=== PATIENT | male | born 1950 | race Caucasian/White ===

== ENCOUNTER 2016-08-13 11:09 | Emergency (ER) | payer SELFPAY ==
[2016-08-13] MEDS ORDERED: IPRATROPIUM BROMIDE 0.02% NEB 0.5 MG/2.5 ML AMPUL NEB ONE (11:28)
--- NOTE | 2016-08-13 11:35 | ER Document Report ---
ED Respiratory Problem - General Mode of Arrival: Medic Information source: Patient TRAVEL OUTSIDE OF THE [place] IN LAST 30 DAYS: No - HPI Patient complains to provider of: Cough, Short of breath Onset: Other - see narrative Duration: Worse/persistent Quality of pain: No pain Context: Hx COPD <PRIYANKAZENA - Last Filed: 08/13/16 11:41> <JACQUELIN PRETTY - Last Filed: 08/13/16 13:29> - General Chief Complaint: Chest Pain Stated Complaint: SHORTNESS OF BREATH Notes: Patient is a 65-year-old male that presents to the emergency department today with complaints of shortness of breath with a cough. Patient states that he has had the cough for 5-6 days and the shortness of breath for the last 2-3 weeks. Patient states he has noticed that his sputum is christian in color and he has had blood specks in the sputum periodically. Patient has an extensive documented past medical history. (ZENA MATHEW) - Related Data Allergies/Adverse Reactions: celecoxib [From Celebrex] Allergy (Unknown, Verified 05/07/15 14:18) codeine [Codeine] Allergy (Unknown, Verified 05/07/15 14:18) fluticasone [Fluticasone] Allergy (Unknown, Verified 05/07/15 14:18) gabapentin [Gabapentin] Allergy (Unknown, Verified 05/07/15 14:18) oxycodone HCl [From Percocet] Allergy (Unknown, Verified 05/07/15 14:18) pentazocine lactate [From Talwin] Allergy (Unknown, Verified 05/07/15 14:18) simvastatin [From Zocor] Allergy (Unknown, Verified 05/07/15 14:18) adhesive tape [Adhesive Tape] Allergy (Verified 05/07/15 14:18) latex [Latex] Allergy (Verified 05/07/15 14:18) oxycodone terephthalate [From Percodan] Allergy (Verified 05/07/15 14:18) prednisone [Prednisone] Allergy (Verified 05/07/15 14:18) topiramate [From Topamax] Allergy (Verified 05/07/15 14:18) albuterol [Albuterol] Adverse Reaction (Unknown, Verified 05/07/15 14:18) dry throat verisol Allergy (Uncoded 12/14/15 14:18) Past Medical History - General Information source: Patient, [facility] Records - Social History Smoking Status: Former Smoker Cigarette use (# per day): No Frequency of alcohol use: None Drug Abuse: None Lives with: Family Family History: Reviewed & Not Pertinent - Past Medical History Cardiac Medical History: Reports: Hx Atrial Fibrillation, Hx Congestive Heart Failure, Hx Coronary Artery Disease, Hx Heart Attack, Hx Hypercholesterolemia, Hx Hypertension, Hx Peripheral Vascular Disease, Hx Pulmonary Embolism Pulmonary Medical History: Reports: Hx Asthma, Hx COPD, Hx Pneumonia, Hx Sleep Apnea Neurological Medical History: Reports: Hx Cerebrovascular Accident - x2 Endocrine Medical History: Reports: Hx Diabetes Mellitus Type 2 - insulin- dependent Renal/ Medical History: Reports: Hx Kidney Stones GI Medical History: Reports: Hx Gastroesophageal Reflux Disease, Hx Hiatal Hernia Musculoskeltal Medical History: Reports Hx Arthritis - neck and head, Reports Hx Fibromyalgia Psychiatric Medical History: Reports: Hx Depression, Hx Post Traumatic Stress Disorder Traumatic Medical History: Reports: Hx Fractures Infectious Medical History: Reports: Hx MRSA Past Surgical History: Reports: Hx Cardiac Catheterization, Hx Cardiac Surgery - pacemaker, stents, aortic bypass, femfem bypass., Hx Orthopedic Surgery - Bilat knees,back, right ankle, right elbow, Hx Pacemaker - Immunizations Immunizations up to date: Yes Hx Diphtheria, Pertussis, Tetanus Vaccination: Yes Hx Pneumococcal Vaccination: 01/24/08 <ZENA MATHEW - Last Filed: 08/13/16 11:41> Review of Systems - Review of Systems Constitutional: No symptoms reported EENT: No symptoms reported Cardiovascular: No symptoms reported Respiratory: See HPI, Cough, Short of breath, Wheezing Gastrointestinal: No symptoms reported Genitourinary: No symptoms reported Male Genitourinary: No symptoms reported Musculoskeletal: No symptoms reported Skin: No symptoms reported Hematologic/Lymphatic: No symptoms reported Neurological/Psychological: No symptoms reported -: Yes All other systems reviewed and negative <ZENA MATHEW - Last Filed: 08/13/16 11:41> Physical Exam - General General appearance: Appears well In distress: None - HEENT Head: Normocephalic, Atraumatic Eyes: Normal Conjunctiva: Normal - Respiratory Respiratory status: No respiratory distress Chest status: Nontender Breath sounds: Wheezing - inspiratory and expiratory wheezing bilaterally - Cardiovascular Rhythm: Regular Heart sounds: Normal auscultation Murmur: No - Abdominal Inspection: Normal Distension: No distension Bowel sounds: Normal Tenderness: Nontender - Extremities General upper extremity: Normal inspection, Normal ROM. No: Edema General lower extremity: Edema - pitting edema bilaterally, Normal ROM - Neurological Neuro grossly intact: Yes Cognition: Normal Speech: Normal - Psychological Associated symptoms: Normal affect, Normal mood - Skin Skin Temperature: Warm Skin Moisture: Dry Skin Color: Normal <ZENA MATHEW - Last Filed: 08/13/16 11:41> Course - Laboratory Result Diagrams: 08/13/16 12:25 08/13/16 12:25 - Diagnostic Test Radiology reviewed: Image reviewed, Reports reviewed - Chest x-ray does not show any acute change. - EKG Interpretation by Fl EKG shows normal: Sinus rhythm, [place], Intervals, QRS Complexes, ST-T Waves Rate: Normal - 61 Rhythm: NSR [place]/QRS: IVCD When compared to previous EKG there are: No significant change <JACQUELIN PRETTY - Last Filed: 08/13/16 13:29> - Vital Signs Vital signs: Temp Pulse Resp BP Pulse Ox 97.9 F 61 13 122/71 91 L 08/13/16 11:24 08/13/16 11:24 08/13/16 11:46 08/13/16 12:01 08/13/16 12:00 - Laboratory Laboratory results interpreted by wv: 08/13/16 08/13/16 08/13/16 12:25 12:25 12:25 RBC 3.85 L Hgb 12.1 L Hct 36.0 L Plt Count 119 L PT 26.0 H Glucose 205 H Creatine Kinase 305 H Discharge <ZENA MATHEW - Last Filed: 08/13/16 11:41> <JACQUELIN PRETTY - Last Filed: 08/13/16 13:29> - Discharge Clinical Impression: Viral upper respiratory tract infection with cough, Hemoptysis Condition: Stable Disposition: HOME, SELF-CARE Additional Instructions: Bronchitis with Bronchospasm (Wheezing): You have bronchitis with bronchospasm (wheezing). Sometimes people develop wheezing with a chest cold. This occurs either because of an underlying tendency toward asthma or because the virus itself irritates the bronchial tubes. This irritation causes cough, shortness of breath, and wheezing. Emergency treatment of bronchospasm may include adrenaline shots or bronchodilator aerosol. You may feel lightheaded and have a rapid pulse for an hour or two. Rest and get plenty of fluids. At home, we'll treat you with a bronchodilator inhaler. Corticosteroids may be required for some patients. Until you recover, avoid chemical fumes, dusts, pollens, and exercising in very cold or dry air. If you smoke, stop now! Most cases of bronchitis get better without antibiotics. We prescribe antibiotics when we believe bacteria are damaging your airways, or if there's high risk the bronchitis will worsen into pneumonia. Increase your fluid intake. A cool mist humidifier may make your lungs more comfortable. An expectorant (cough medicine that loosens phlegm) can help. Repeated episodes of bronchitis and bronchospasm may result in lung damage -- for example, chronic bronchitis, recurrent pneumonias, or emphysema. If you develop a fever, increased wheezing, chest pain, or severe shortness of breath, you should contact the doctor immediately. USE THE INHALER PRESCRIBED FOR WHEEZING. FOLLOW UP WITH YOUR DOCTOR IF NOT IMPROVING. RETURN TO THE EMERGENCY ROOM IF ANY NEW OR WORSENING SYMPTOMS. Prescriptions: Ipratropium [place] [Atrovent Hfa] 12.9 gm IH Q4 #1 [email or web address] Scribe Attestation: 08/13/16 13:29 I personally performed the services described in the documentation, reviewed and edited the documentation which was dictated to the scribe in my presence, and it accurately records my words and actions. (JACQUELIN PRETTY) Scribe Documentation - Scribe Written by Lilly:: Lilly Proctor, 08/13/2016 1137 acting as scribe for :: Dhiraj <ZENA MATHEW - Last Filed: 08/13/16 11:41>
[2016-08-13 12:42] LABS: ABSOLUTE EOSINOPHILS # (AUTO) 0.1 10^3/uL (0.0-0.6); ABSOLUTE LYMPHOCYTES (AUTO) 1.3 10^3/uL (0.5-4.7); ABSOLUTE MONOCYTES (AUTO) 0.7 10^3/uL (0.1-1.4); ABSOLUTE NEUT (AUTO) 6.3 10^3/uL (1.7-8.2); BASOPHILS % (AUTO) 0.3 % (0-2); EOSINOPHILS % (AUTO) 1.2 % (0-6); HEMOGLOBIN 12.1 g/dL (13.5-17.0); HGB HCT DIFFERENCE 0.3; MEAN CORPUSCULAR HEMOGLOBIN 31.6 pg (27.0-33.4); MEAN CORPUSCULAR HGB CONC 33.7 g/dL (32.0-36.0); MEAN CORPUSCULAR VOLUME 94 fl (80-97); MONOCYTES % (AUTO) 8.4 % (3-13); RED BLOOD COUNT 3.85 10^6/uL (4.35-5.55); RED CELL DISTRIBUTION WIDTH 13.5 % (11.5-14.0); SEGMENTED NEUTROPHILS % (AUTO) 74.1 % (42-78); WHITE BLOOD COUNT 8.4 10^3/uL (4.0-10.5)
[2016-08-13] MEDS ORDERED: MORPHINE SULFATE 10 MG/ML INJ IV ONE (12:44)
[2016-08-13 13:02] LABS: ALANINE AMINOTRANSFERASE 36 U/L (21-72); ALBUMIN 3.9 g/dL (3.5-5.0); ALKALINE PHOSPHATASE 74 U/L (38-126); ANION GAP 13 (5-19); ASPARTATE AMINO TRANSFERASE 23 U/L (17-59); BILIRUBIN,DIRECT 0.2 mg/dL (0.0-0.4); BILIRUBIN,TOTAL 0.6 mg/dL (0.2-1.3); BLOOD UREA NITROGEN 10 mg/dL (7-20); CALCIUM 9.2 mg/dL (8.4-10.2); CARBON DIOXIDE 29 mmol/L (22-30); CHLORIDE 99 mmol/L (98-107); CREATINE KINASE 305 U/L (55-170); CREATININE RESULT 0.69 mg/dL (0.52-1.25); GLUCOSE 205 mg/dL (75-110); MAGNESIUM 1.6 mg/dL (1.6-2.3); SODIUM 140.9 mmol/L (137-145); TOTAL PROTEIN 6.6 g/dL (6.3-8.2)
[2016-08-13 13:14] LABS: CREATINE KINASE MB 1.57 ng/mL (<4.55)
[2016-08-13 13:18] LABS: TROPONIN I < 0.012 ng/mL
--- NOTE | 2016-08-13 13:50 | EKG REPORT ---
SEVERITY:- ABNORMAL ECG - SINUS RHYTHM NONSPECIFIC INTRAVENTRICULAR CONDUCTION DELAY NONSPECIFIC ST-T CHANGES INFEROLATERAL LEADS. : Confirmed by: Cornelio Duenas MD 13-Aug-2016 13:50:04
[2016-08-13 14:28] VITALS: BP 120/60
== END 2016-08-13 14:28 | disposition home or self-care (01) ==
LOC: ER 11:09
DX: J06.9 Acute upper respiratory infection, unspecified (principal); R07.9 Chest pain, unspecified; B97.89 Other viral agents as the cause of diseases classified elsewhere; R04.2 Hemoptysis; R06.02 Shortness of breath; I48.91 Unspecified atrial fibrillation; I50.9 Heart failure, unspecified; I11.0 Hypertensive heart disease with heart failure; I25.10 Atherosclerotic heart disease of native coronary artery without angina pectoris; J44.9 Chronic obstructive pulmonary disease, unspecified; E78.00 Pure hypercholesterolemia, unspecified; E11.9 Type 2 diabetes mellitus without complications; Z88.6 Allergy status to analgesic agent; Z87.891 Personal history of nicotine dependence; Z86.711 Personal history of pulmonary embolism; Z86.73 Personal history of transient ischemic attack (TIA), and cerebral infarction without residual deficits; Z79.4 Long term (current) use of insulin; Z87.442 Personal history of urinary calculi; Z86.14 Personal history of Methicillin resistant Staphylococcus aureus infection; Z95.0 Presence of cardiac pacemaker; Z95.1 Presence of aortocoronary bypass graft; I25.2 Old myocardial infarction
CPT/HCPCS: 93005; 36591; 94640; 99285; 96374; 36415; 87040; 82553; 82550; 83735; 85025; 85610; 80053; 84484; 83880; 71010; 93010; J2270; J3490

== ENCOUNTER 2017-11-07 00:08 | Emergency (ER) | payer OTHER, MEDICARE ==
[2017-11-07] MEDS ORDERED: ASPIRIN 325 MG TABLET PO ONE (00:24)
[2017-11-07] MEDS ORDERED: LEVALBUTEROL HCL NEB 1.25 MG/3 ML AMPUL NEB ONE (00:27)
[2017-11-07] MEDS ORDERED: FENTANYL CITRATE INJ/PF 100 MCG/2 ML AMPUL IV ONE (00:29)
--- NOTE | 2017-11-07 00:30 | ER Document Report ---
ED General - General Stated Complaint: CHEST PAIN Time Seen by Provider: 11/07/17 00:17 Notes: Patient is a 66-year-old male with history of COPD and coronary disease who still smokes who presents with complaint of chest pain. Patient says he has chest pain frequently. He was actually just discharged from the hospital last week. He says that he has 8 stents now have blockages and is been told by his bakelite molder that he cannot have any further stents. He says that last week at the hospital he had a stress test which showed no new congestive lesions. Denies any vomiting. No diarrhea. He still having chest pain again tonight. Chest pain does not respond at all to nitro. He therefore came to the ER. He does have a lot of wheezing. He does still smoke and does have history of COPD. His allergy list includes many medications including Celebrex. When I asked him if he can take aspirin he says "I do not think so". I asked him why and he said that is because he cannot chew them. He then said he can take the kind that they swallow. I therefore ordered aspirin that he can swallow. Went to order him breathing treatment and also says he is allergic to albuterol. Patient says he is not sure what his allergy to albuterol was not any says it might be because it makes his heart race fast. I therefore have ordered Xopenex. Patient's chest pain is substernal and nonradiating. No recent fevers or infections. No other complaints at this time. He does have a pacemaker and a port. TRAVEL OUTSIDE OF THE [place] IN LAST 30 DAYS: No - Related Data Allergies/Adverse Reactions: celecoxib [From Celebrex] Allergy (Unknown, Verified 05/07/15 14:18) codeine [Codeine] Allergy (Unknown, Verified 05/07/15 14:18) fluticasone [Fluticasone] Allergy (Unknown, Verified 05/07/15 14:18) gabapentin [Gabapentin] Allergy (Unknown, Verified 05/07/15 14:18) oxycodone HCl [From Percocet] Allergy (Unknown, Verified 05/07/15 14:18) pentazocine lactate [From Talwin] Allergy (Unknown, Verified 05/07/15 14:18) simvastatin [From Zocor] Allergy (Unknown, Verified 05/07/15 14:18) adhesive tape [Adhesive Tape] Allergy (Verified 05/07/15 14:18) latex [Latex] Allergy (Verified 05/07/15 14:18) oxycodone terephthalate [From Percodan] Allergy (Verified 05/07/15 14:18) prednisone [Prednisone] Allergy (Verified 05/07/15 14:18) topiramate [From Topamax] Allergy (Verified 05/07/15 14:18) albuterol [Albuterol] Adverse Reaction (Unknown, Verified 05/07/15 14:18) dry throat verisol Allergy (Uncoded 05/07/15 14:18) Past Medical History - Social History Smoking Status: Current Every Day Smoker Frequency of alcohol use: None Drug Abuse: None Family History: Reviewed & Not Pertinent - Past Medical History Cardiac Medical History: Reports: Hx Atrial Fibrillation, Hx Congestive Heart Failure, Hx Coronary Artery Disease, Hx Heart Attack, Hx Hypercholesterolemia, Hx Hypertension, Hx Peripheral Vascular Disease, Hx Pulmonary Embolism Pulmonary Medical History: Reports: Hx Asthma, Hx COPD, Hx Pneumonia, Hx Sleep Apnea Neurological Medical History: Reports: Hx Cerebrovascular Accident - x2 Endocrine Medical History: Reports: Hx Diabetes Mellitus Type 2 - insulin- dependent Renal/ Medical History: Reports: Hx Kidney Stones GI Medical History: Reports: Hx Gastroesophageal Reflux Disease, Hx Hiatal Hernia Musculoskeltal Medical History: Reports Hx Arthritis - neck and head, Reports Hx Fibromyalgia Psychiatric Medical History: Reports: Hx Depression, Hx Post Traumatic Stress Disorder Traumatic Medical History: Reports: Hx Fractures Infectious Medical History: Reports: Hx MRSA Past Surgical History: Reports: Hx Cardiac Catheterization, Hx Cardiac Surgery - pacemaker, stents, aortic bypass, femfem bypass., Hx Orthopedic Surgery - Bilat knees,back, right ankle, right elbow, Hx Pacemaker, Hx Vascular Surgery - stents x8 - Immunizations Immunizations up to date: Yes Hx Diphtheria, Pertussis, Tetanus Vaccination: Yes Hx Pneumococcal Vaccination: 01/24/08 Review of Systems - Review of Systems Notes: My Normal Review Basic REVIEW OF SYSTEMS: CONSTITUTIONAL : Denies fever, chills, or sweats. Denies recent illness. CARDIOVASCULAR: Chest pain RESPIRATORY: Wheezing GASTROINTESTINAL: Denies abdominal pain. Denies nausea, vomiting, or diarrhea. Denies constipation. Last BM: GENITOURINARY: Denies difficulty urinating, painful urination, burning, frequency, or blood in urine. MUSCULOSKELETAL: Denies neck or back pain or joint pain or swelling. SKIN: Denies rash or skin lesions. NEUROLOGICAL: Denies altered mental status or loss of consciousness. ALL OTHER SYSTEMS REVIEWED AND NEGATIVE. Physical Exam - Vital signs Vitals: Resp Pulse Ox 16 98 11/07/17 00:26 11/07/17 00:26 - Notes Notes: General Appearance: Well nourished, alert, cooperative, no acute distress, no obvious discomfort. Vitals: reviewed, See vital signs table. Head: no swelling or tenderness to the head Eyes: PERRL, EOMI, Conjuctiva clear Mouth: No decreasd moisture Lungs: diffuse wheezing, No rales, diffuse rhonci, No accessory muscle use, good air exchange bilaterally. Heart: Normal rate, Regular rythm, No murmur, no rub Abdomen: Normal BS, soft, No rigidity, No abdominal tenderness, No guarding, no rebound, no abdominal masses, no organomegaly Extremities: strength 5/5 in all extremities, good pulses in all extremities, no swelling or tenderness in the extremities, no edema. Skin: warm, dry, appropriate color, no rash Neuro: speech clear, oriented x 3, normal affect, responds appropriately to questions. Course - Re-evaluation Re-evalutation: 11/07/17 02:19 Patient's chest pain completely resolved the fentanyl. On final read for office chest pain came back. EKG is negative his initial troponin is negative. Will order a delta troponin. I will give him a dose of [place]. His pain is not affected all but nitro and it is reproducible palpation. I will repeat another EKG as well. 11/07/17 06:48 Patient's lung auscultation is improved after Xopenex treatment. I suspect this is a rescue inhaler has at home as he says it is similar to albuterol but not albuterol. He does not have a spacer for. I will give him a spacer so that hopefully the inhalers will be more effective for him. His pain is reproducible palpation of his chest. I do not suspect that his pain is related to his coronary disease being that she is a reproducible palpation, is worse when he had his wheezing, he does not respond to nitro, his EKG and troponins are negative, and because he had a recent cardiac stress test which was negative. Strong informed patient call his bakelite molder on Thursday for close follow-up and reevaluation. I encourage him return to ER immediately if he has worsening chest pain, difficulty breathing, or feels unwell. Patient agrees with plan will be discharged home. Strongly encourage patient to quit smoking. Dictation of this chart was performed using voice recognition software; therefore, there may be some unintended grammatical errors. - Vital Signs Vital signs: Temp Pulse Resp BP Pulse Ox 17 134/71 H 98 11/07/17 04:33 11/07/17 04:33 11/07/17 04:33 - Laboratory Result Diagrams: 11/07/17 01:10 11/07/17 01:10 Laboratory results interpreted by me: 11/07/17 11/07/17 11/07/17 01:10 01:10 01:17 RBC 4.11 L Hgb 12.7 L Hct 37.5 L RDW 14.5 H Plt Count 136 L POC Glucose 111 H ALT 16 L - EKG Interpretation by Me Additional EKG results interpreted by me: 11/07/17 00:34 EKG is reviewed and interpreted by me. EKG shows paced rhythm with rate of [address] segment elevation or depression. No new T-wave inversions. RI interval slightly prolonged. QRS duration QTc intervals are within normal range. No acute changes comparison to old EKG from August 13, 2016. 11/07/17 03:11 EKG #2 is reviewed and interpreted by me. EKG continues to show a paced rhythm with rate of [address] segment elevation or depression. T-wave inversion in lead III again is unchanged comparison to previous EKG. Discharge - Discharge Clinical Impression: Chest pain Qualifiers: Chest pain type: unspecified Qualified Code(s): R07.9 - Chest pain, unspecified COPD (chronic obstructive pulmonary disease) Qualifiers: COPD type: unspecified COPD Qualified Code(s): J44.9 - Chronic obstructive pulmonary disease, unspecified Condition: Good Disposition: HOME, SELF-CARE Additional Instructions: Please call your bakelite molder Thursday morning for a follow up appointment. please use your inhaler with the spacer I gave you to help with your wheezing. please return to the ER if you have worsening chest pain, difficulty breathing, or feel that you are worsening in any way. Referrals: INGRIS TENA MD [Primary Care Provider] - 11/09/17
[2017-11-07] MEDS ORDERED: ONDANSETRON 4 MG TAB.RAPDIS PO ONE (00:38)
--- NOTE | 2017-11-07 01:13 | RADIOLOGY REPORT (SQ) ---
EXAM DESCRIPTION: CLINICAL HISTORY: 66 years Male chest pain COMPARISON: 08/11/2016 FINDINGS: The cardiomediastinal silhouette appears unremarkable. No consolidating infiltrates or pleural effusions. No pneumothorax. [id number] catheter with the tip in the SVC. Pacemaker in place. IMPRESSION: No acute abnormality is identified.
[2017-11-07 01:32] LABS: ABSOLUTE EOSINOPHILS # (AUTO) 0.1 10^3/uL (0.0-0.6); ABSOLUTE LYMPHOCYTES (AUTO) 2.6 10^3/uL (0.5-4.7); ABSOLUTE MONOCYTES (AUTO) 0.8 10^3/uL (0.1-1.4); ABSOLUTE NEUT (AUTO) 5.9 10^3/uL (1.7-8.2); BASOPHILS % (AUTO) 0.3 % (0-2); EOSINOPHILS % (AUTO) 0.6 % (0-6); HEMATOCRIT 37.5 % (37.9-51.0); HEMOGLOBIN 12.7 g/dL (13.5-17.0); LYMPHOCYTES % (AUTO) 27.5 % (13-45); MEAN CORPUSCULAR HGB CONC 33.9 g/dL (32.0-36.0); MEAN CORPUSCULAR VOLUME 91 fl (80-97); MONOCYTES % (AUTO) 8.6 % (3-13); PLATELET COUNT 136 10^3/uL (150-450); RED BLOOD COUNT 4.11 10^6/uL (4.35-5.55); RED CELL DISTRIBUTION WIDTH 14.5 % (11.5-14.0); TOTAL CELLS COUNTED % (AUTO) 100 %; WHITE BLOOD COUNT 9.3 10^3/uL (4.0-10.5)
[2017-11-07 01:42] LABS: ALANINE AMINOTRANSFERASE 16 U/L (21-72); ALBUMIN 3.5 g/dL (3.5-5.0); ALKALINE PHOSPHATASE 79 U/L (38-126); ANION GAP 10 (5-19); ASPARTATE AMINO TRANSFERASE 20 U/L (17-59); BILIRUBIN,DIRECT 0.3 mg/dL (0.0-0.4); BILIRUBIN,TOTAL 0.4 mg/dL (0.2-1.3); BLOOD UREA NITROGEN 8 mg/dL (7-20); CARBON DIOXIDE 26 mmol/L (22-30); CHLORIDE 103 mmol/L (98-107); GLUCOSE 101 mg/dL (75-110); POTASSIUM 3.9 mmol/L (3.6-5.0); SODIUM 139.2 mmol/L (137-145); TOTAL PROTEIN 6.9 g/dL (6.3-8.2)
[2017-11-07] MEDS ORDERED: HYDROCODONE/ACETAMINOPHEN 5-325 MG TABLET PO ONE (02:15)
[2017-11-07 04:52] VITALS: BP 134/71
--- NOTE | 2017-11-07 07:51 | EKG REPORT ---
SEVERITY:- ABNORMAL ECG - ATRIAL-PACED RHYTHM PROBABLE INFERIOR INFARCT, AGE INDETERMINATE : Confirmed by: Cornelio Duenas MD 07-Nov-2017 07:50:36
--- NOTE | 2017-11-07 07:51 | EKG REPORT ---
SEVERITY:- ABNORMAL ECG - ATRIAL-PACED COMPLEXES PROBABLE INFERIOR INFARCT, AGE INDETERMINATE CONSIDER POSTERIOR WALL INVOLVEMENT : Confirmed by: Cornelio Duenas MD 07-Nov-2017 07:50:23
== END 2017-11-07 04:52 | disposition home or self-care (01) ==
LOC: ER 00:08
DX: R07.9 Chest pain, unspecified (principal); J44.9 Chronic obstructive pulmonary disease, unspecified; I25.10 Atherosclerotic heart disease of native coronary artery without angina pectoris; I10 Essential (primary) hypertension; I25.2 Old myocardial infarction; F17.200 Nicotine dependence, unspecified, uncomplicated; E11.9 Type 2 diabetes mellitus without complications; Z79.4 Long term (current) use of insulin; Z86.711 Personal history of pulmonary embolism; Z95.5 Presence of coronary angioplasty implant and graft; Z95.1 Presence of aortocoronary bypass graft; Z95.0 Presence of cardiac pacemaker; Z88.8 Allergy status to other drugs, medicaments and biological substances; Z88.5 Allergy status to narcotic agent; Z88.6 Allergy status to analgesic agent; Z91.040 Latex allergy status; Z91.048 Other nonmedicinal substance allergy status
CPT/HCPCS: 93005; 36591; 94640; 99285; 96374; 36415; 82962; 85025; 80053; 84484; 71045; 93010; S0119; J3010; J3490

== ENCOUNTER 2018-03-24 16:28 | Inpatient (IN) | payer OTHER, MEDICARE ==
--- NOTE | 2018-03-24 16:51 | ER Document Report ---
ED General - General Stated Complaint: CHEST PAIN Time Seen by Provider: 03/24/18 16:50 Mode of Arrival: Ambulatory Information source: Patient, [facility] Records Notes: 67-year-old male with coronary artery disease, hypertension, hyperlipidemia, atrial fibrillation, COPD, type 2 diabetes, CHF presents with complaint of nausea, vomiting, abdominal pain and diarrhea. Patient states that diarrhea started 2 days prior to arrival. He is experiencing approximately 4-5 episodes of nonbloody diarrhea daily. Patient states that his vomiting started this morning. He states that he has had 3 episodes of nonbilious nonbloody emesis. He states that he has not been able to keep down any of his medications or fluids. Patient also reports 3 days of a productive cough. His abdominal pain is generalized, described as cramping, intermittent. Patient is experiencing some burning chest pain but he states this is after he vomits. Patient denies any recent travel, antibiotic use. He has had sick contacts with a who had similar symptoms last week. Patient is on 2 L of oxygen chronically for his COPD. He denies any increased oxygen need. TRAVEL OUTSIDE OF THE [place] IN LAST 30 DAYS: No - HPI Onset: Yesterday Onset/Duration: Gradual, Persistent Quality of pain: Cramping Severity: Mild Associated symptoms: Body/muscle aches, Chest pain, Productive cough, Diarrhea, Nausea, Vomiting, Other - Abdominal pain. denies: Fever, Headache Exacerbated by: Food Relieved by: Denies - Related Data Allergies/Adverse Reactions: celecoxib [From Celebrex] Allergy (Unknown, Verified 05/07/15 14:18) codeine [Codeine] Allergy (Unknown, Verified 05/07/15 14:18) fluticasone [Fluticasone] Allergy (Unknown, Verified 05/07/15 14:18) gabapentin [Gabapentin] Allergy (Unknown, Verified 05/07/15 14:18) oxycodone HCl [From Percocet] Allergy (Unknown, Verified 05/07/15 14:18) pentazocine lactate [From Talwin] Allergy (Unknown, Verified 05/07/15 14:18) simvastatin [From Zocor] Allergy (Unknown, Verified 05/07/15 14:18) adhesive tape [Adhesive Tape] Allergy (Verified 05/07/15 14:18) latex [Latex] Allergy (Verified 05/07/15 14:18) oxycodone terephthalate [From Percodan] Allergy (Verified 05/07/15 14:18) prednisone [Prednisone] Allergy (Verified 05/07/15 14:18) topiramate [From Topamax] Allergy (Verified 05/07/15 14:18) albuterol [Albuterol] Adverse Reaction (Unknown, Verified 05/07/15 14:18) dry throat verisol Allergy (Uncoded 05/07/15 14:18) Past Medical History - General Information source: Patient, Relative, [facility] Records - Social History Smoking Status: Former Smoker Frequency of alcohol use: None Lives with: Spouse/Significant other Family History: Reviewed & Not Pertinent Patient has suicidal ideation: No Patient has homicidal ideation: No - Past Medical History Cardiac Medical History: Reports: Hx Atrial Fibrillation, Hx Congestive Heart Failure, Hx Coronary Artery Disease, Hx Heart Attack, Hx Hypercholesterolemia, Hx Hypertension, Hx Peripheral Vascular Disease, Hx Pulmonary Embolism Pulmonary Medical History: Reports: Hx Asthma, Hx COPD, Hx Pneumonia, Hx Sleep Apnea Neurological Medical History: Reports: Hx Cerebrovascular Accident - x2 Endocrine Medical History: Reports: Hx Diabetes Mellitus Type 2 - insulin- dependent Renal/ Medical History: Reports: Hx Kidney Stones. Denies: Hx Peritoneal Dialysis GI Medical History: Reports: Hx Gastroesophageal Reflux Disease, Hx Hiatal Hernia Musculoskeletal Medical History: Reports Hx Arthritis - neck and head, Reports Hx Fibromyalgia Psychiatric Medical History: Reports: Hx Depression, Hx Post Traumatic Stress Disorder Traumatic Medical History: Reports: Hx Fractures Infectious Medical History: Reports: Hx MRSA Past Surgical History: Reports: Hx Cardiac Catheterization, Hx Cardiac Surgery - pacemaker, stents, aortic bypass, femfem bypass., Hx Orthopedic Surgery - Bilat knees,back, right ankle, right elbow, Hx Pacemaker, Hx Vascular Surgery - stents x8 - Immunizations Immunizations up to date: Yes Hx Diphtheria, Pertussis, Tetanus Vaccination: Yes Hx Pneumococcal Vaccination: 01/24/08 Review of Systems - Review of Systems Constitutional: Malaise, Recent illness EENT: denies: Throat pain Cardiovascular: Chest pain - Burning chest pain after vomiting. denies: Dizziness Respiratory: Cough, Short of breath - Chronic shortness of breath secondary to COPD Gastrointestinal: Abdominal pain, Diarrhea, Nausea, Vomiting Genitourinary: denies: Dysuria Male Genitourinary: No symptoms reported Musculoskeletal: Back pain - Chronic back pain Skin: denies: Rash Hematologic/Lymphatic: No symptoms reported Neurological/Psychological: denies: Confusion, Headaches -: Yes All other systems reviewed and negative Physical Exam - Vital signs Vitals: Temp Pulse Resp BP Pulse Ox 98.6 F 64 24 H 164/75 H 96 03/24/18 16:30 03/24/18 16:30 03/24/18 16:30 03/24/18 16:30 03/24/18 16:30 Interpretation: Hypertensive, Tachypneic. No: Hypoxic, Febrile - Notes Notes: PHYSICAL EXAMINATION: GENERAL: Well-appearing, well-nourished and in no acute distress. HEAD: Atraumatic, normocephalic. EYES: Pupils equal round and reactive to light, extraocular movements intact, sclera anicteric, conjunctiva are normal. ENT: Nares patent, oropharynx clear without exudates. Moist mucous membranes. NECK: Normal range of motion, supple without lymphadenopathy LUNGS: Coarse breath sounds bilaterally. Nasal cannula in place. No accessory muscle use. HEART: Regular rate and rhythm without murmurs ABDOMEN: Soft, nontender, nondistended abdomen. No guarding, no rebound. No masses appreciated. Musculoskeletal: Normal range of motion, no pitting or edema. No cyanosis. NEUROLOGICAL: Cranial nerves grossly intact. Normal speech, normal gait. Normal sensory, motor exams PSYCH: Normal mood, normal affect. SKIN: Warm, Dry, normal turgor, no rashes or lesions noted. Course - Re-evaluation Re-evalutation: 03/25/18 00:13 Laboratory 03/24/18 03/24/18 03/24/18 16:55 16:55 16:55 WBC 8.2 RBC 4.57 Hgb 13.5 Hct 39.2 MCV 86 MCH 29.5 MCHC 34.4 RDW 15.3 H Plt Count 141 L Seg Neutrophils % 76.3 Lymphocytes % 17.5 Monocytes % 5.7 Eosinophils % 0.1 Basophils % 0.4 Absolute Neutrophils 6.3 Absolute Lymphocytes 1.4 Absolute Monocytes 0.5 Absolute Eosinophils 0.0 Absolute Basophils 0.0 PT INR Sodium 136.8 L Potassium 4.6 Chloride 102 Carbon Dioxide 24 Anion Gap 11 BUN 6 L Creatinine 0.59 Est GFR ( Amer) > 60 Est GFR (Non-Af Amer) > 60 Glucose 141 H Calcium 9.1 Total Bilirubin 0.9 Direct Bilirubin 0.4 Neonat Total Bilirubin Not Reportable Neonat Direct Bilirubin Not Reportable Neonat Indirect Bili Not Reportable AST 22 ALT < 6 L Alkaline Phosphatase 81 Creatine Kinase 32 L CK-MB (CK-2) 0.44 Troponin I < 0.012 NT-Pro-B Natriuret Pep Total Protein 7.5 Albumin 3.6 Lipase 03/24/18 03/24/18 03/24/18 16:55 16:55 21:15 WBC RBC Hgb Hct MCV MCH MCHC RDW Plt Count Seg Neutrophils % Lymphocytes % Monocytes % Eosinophils % Basophils % Absolute Neutrophils Absolute Lymphocytes Absolute Monocytes Absolute Eosinophils Absolute Basophils PT INR Sodium Potassium Chloride Carbon Dioxide Anion Gap BUN Creatinine Est GFR ( Amer) Est GFR (Non-Af Amer) Glucose Calcium Total Bilirubin Direct Bilirubin Neonat Total Bilirubin Neonat Direct Bilirubin Neonat Indirect Bili AST ALT Alkaline Phosphatase Creatine Kinase CK-MB (CK-2) Troponin I 0.012 NT-Pro-B Natriuret Pep 2520 H Total Protein Albumin Lipase 101.6 03/24/18 23:20 WBC RBC Hgb Hct MCV MCH MCHC RDW Plt Count Seg Neutrophils % Lymphocytes % Monocytes % Eosinophils % Basophils % Absolute Neutrophils Absolute Lymphocytes Absolute Monocytes Absolute Eosinophils Absolute Basophils PT 23.3 H INR 1.96 Sodium Potassium Chloride Carbon Dioxide Anion Gap BUN Creatinine Est GFR ( Amer) Est GFR (Non-Af Amer) Glucose Calcium Total Bilirubin Direct Bilirubin Neonat Total Bilirubin Neonat Direct Bilirubin Neonat Indirect Bili AST ALT Alkaline Phosphatase Creatine Kinase CK-MB (CK-2) Troponin I NT-Pro-B Natriuret Pep Total Protein Albumin Lipase Chest X-Ray 03/24/18 16:51 IMPRESSION: Cannot exclude very limited left lower lobe pneumonia. Abdomen/Pelvis CT 03/24/18 17:33 IMPRESSION: No acute intra-abdominal process. Indeterminate left adrenal mass which is increased in size since 201303/25/18 13:23 67-year-old male with coronary artery disease, hypertension, hyperlipidemia, atrial fibrillation, COPD, type 2 diabetes, CHF presents with complaint of nausea, vomiting, abdominal pain and diarrhea. Patient states that diarrhea started 2 days prior to arrival. He is experiencing approximately 4-5 episodes of nonbloody diarrhea daily. Patient states that his vomiting started this morning. He states that he has had 3 episodes of nonbilious nonbloody emesis. He states that he has not been able to keep down any of his medications or fluids. Patient also reports 3 days of a productive cough. Vital signs reviewed upon arrival and within normal limits. Patient is afebrile, normal tensive. Patient does appear ill, he is actively vomiting. No significant laboratory findings. Chest x-ray concerning for upper lobe pneumonia. Because of the patient's persistent vomiting I am concerned that he will not be the medications he requires for pneumonia. He has not had a hospitalizations in the last 3 months. He was administered ceftriaxone and azithromycin. Patient was accepted for admission by the hospitalist. 03/25/18 13:23 - Vital Signs Vital signs: Temp Pulse Resp BP Pulse Ox 97.6 F 64 22 H 132/51 H 99 03/25/18 12:02 03/25/18 12:02 03/25/18 12:02 03/25/18 12:02 03/25/18 12:02 - Laboratory Result Diagrams: 03/25/18 05:10 03/25/18 05:10 Laboratory results interpreted by me: 03/24/18 03/24/18 03/24/18 16:55 16:55 16:55 RDW 15.3 H Plt Count 141 L Sodium 136.8 L BUN 6 L Glucose 141 H ALT < 6 L Creatine Kinase 32 L NT-Pro-B Natriuret Pep 2520 H - Diagnostic Test Radiology reviewed: Image reviewed, Reports reviewed - EKG Interpretation by Me EKG shows normal: Sinus rhythm Rate: Normal Rhythm: NSR When compared to previous EKG there are: No significant change Discharge - Discharge Clinical Impression: Nausea vomiting and diarrhea, Adrenal mass, left, Chronic systolic congestive heart failure Pneumonia Qualifiers: Pneumonia type: due to unspecified organism Laterality: left Lung location: unspecified part of lung Qualified Code(s): J18.9 - Pneumonia, unspecified organism Abdominal pain Qualifiers: Abdominal location: generalized Qualified Code(s): R10.84 - Generalized abdominal pain Chronic back pain Qualifiers: Back pain location: back pain in unspecified location Back pain laterality: unspecified Qualified Code(s): M54.9 - Dorsalgia, unspecified Condition: Good Disposition: ADMITTED INPATIENT Admitting Provider: Hospitalist Unit Admitted: Medical Floor
[2018-03-24 17:12] LABS: ABSOLUTE LYMPHOCYTES (AUTO) 1.4 10^3/uL (0.5-4.7); ABSOLUTE MONOCYTES (AUTO) 0.5 10^3/uL (0.1-1.4); ABSOLUTE NEUT (AUTO) 6.3 10^3/uL (1.7-8.2); BASOPHILS % (AUTO) 0.4 % (0-2); EOSINOPHILS % (AUTO) 0.1 % (0-6); HEMATOCRIT 39.2 % (37.9-51.0); HEMOGLOBIN 13.5 g/dL (13.5-17.0); LYMPHOCYTES % (AUTO) 17.5 % (13-45); MEAN CORPUSCULAR HEMOGLOBIN 29.5 pg (27.0-33.4); MEAN CORPUSCULAR HGB CONC 34.4 g/dL (32.0-36.0); MEAN CORPUSCULAR VOLUME 86 fl (80-97); MONOCYTES % (AUTO) 5.7 % (3-13); PLATELET COUNT 141 10^3/uL (150-450); RED BLOOD COUNT 4.57 10^6/uL (4.35-5.55); RED CELL DISTRIBUTION WIDTH 15.3 % (11.5-14.0); SEGMENTED NEUTROPHILS % (AUTO) 76.3 % (42-78); TOTAL CELLS COUNTED % (AUTO) 100 %; WHITE BLOOD COUNT 8.2 10^3/uL (4.0-10.5)
--- NOTE | 2018-03-24 17:25 | RADIOLOGY REPORT (SQ) ---
EXAM DESCRIPTION: CHEST SINGLE VIEW COMPLETED DATE/TIME: 03/24/2018 5:16 pm REASON FOR STUDY: Chest pain, shortness of breath COMPARISON: 09/29/2014 EXAM PARAMETERS: NUMBER OF VIEWS: One view. TECHNIQUE: Single frontal radiographic view of the chest acquired. RADIATION DOSE: NA LIMITATIONS: None. FINDINGS: LUNGS AND PLEURA: Ill-defined retrocardiac opacification on the left. MEDIASTINUM AND HILAR STRUCTURES: No masses. Contour normal. HEART AND VASCULAR STRUCTURES: Heart normal in size. Normal vasculature. BONES: No acute findings. HARDWARE: Injection port on the left. Pacemaker. OTHER: No other significant finding. IMPRESSION: Cannot exclude very limited left lower lobe pneumonia. TECHNICAL DOCUMENTATION: JOB ID: [id number] [employer]- All Rights Reserved Reading location - IP/workstation name: [email or web address]
[2018-03-24 17:32] LABS: ALANINE AMINOTRANSFERASE < 6 U/L (21-72); ALBUMIN 3.6 g/dL (3.5-5.0); ALKALINE PHOSPHATASE 81 U/L (38-126); ANION GAP 11 (5-19); ASPARTATE AMINO TRANSFERASE 22 U/L (17-59); BILIRUBIN,DIRECT 0.4 mg/dL (0.0-0.4); BILIRUBIN,TOTAL 0.9 mg/dL (0.2-1.3); BLOOD UREA NITROGEN 6 mg/dL (7-20); CALCIUM 9.1 mg/dL (8.4-10.2); CARBON DIOXIDE 24 mmol/L (22-30); CHLORIDE 102 mmol/L (98-107); CREATINE KINASE 32 U/L (55-170); GLUCOSE 141 mg/dL (75-110); POTASSIUM 4.6 mmol/L (3.6-5.0); SODIUM 136.8 mmol/L (137-145); TOTAL PROTEIN 7.5 g/dL (6.3-8.2)
[2018-03-24] MEDS ORDERED: FAMOTIDINE INJ/PF 20 MG/2 ML SDV IV ONE (17:34)
[2018-03-24] MEDS ORDERED: NORMAL SALINE 500 ML IV ONE (17:34)
[2018-03-24] MEDS ORDERED: FENTANYL CITRATE INJ/PF 100 MCG/2 ML AMPUL IV ONE ×2 (17:34→20:25)
[2018-03-24] MEDS ORDERED: METOCLOPRAMIDE HCL INJ/PF 10 MG/2 ML SDV IV ONE (17:34)
[2018-03-24 17:44] LABS: CREATINE KINASE MB 0.44 ng/mL (<4.55)
[2018-03-24 17:47] LABS: TROPONIN I < 0.012 ng/mL
[2018-03-24] MEDS ORDERED: LORAZEPAM INJ 2 MG/1 ML VIAL IV ONE (18:40)
--- NOTE | 2018-03-24 19:21 | EKG REPORT ---
SEVERITY:- ABNORMAL ECG - SINUS RHYTHM PROBABLE INFERIOR INFARCT, OLD : Confirmed by: Alee Eason MD 24-Mar-2018 19:21:12
--- NOTE | 2018-03-24 19:39 | RADIOLOGY REPORT (SQ) ---
EXAM DESCRIPTION: CT ABD/PELVIS WITH IV ONLY COMPLETED DATE/TIME: 03/24/2018 7:18 pm REASON FOR STUDY: Abdominal pain COMPARISON: 2013 TECHNIQUE: CT scan of the abdomen and pelvis performed using helical scanning technique with dynamic intravenous contrast injection. No oral contrast. Images reviewed with lung, soft tissue, and bone windows. Reconstructed coronal and sagittal MPR images reviewed. Delayed images for evaluation of the urinary system also acquired. All images stored on PACS. All CT scanners at this facility use dose modulation, iterative reconstruction, and/or weight based d osing when appropriate to reduce radiation dose to as low as reasonably achievable (ALARA). [facility]: Dose Right [facility]: CareDose [facility]: Dose Right [facility]: Teradose 4D [facility]: Vostu CONTRAST TYPE AND DOSE: contrast/concentration: Isovue 350.00 mg/ml; Total Contrast Delivered: 99.0 ml; Total Saline Delivered: 45.9 ml RENAL FUNCTION: GFR > 60. RADIATION DOSE: CT Rad equipment meets quality standard of care and radiation dose reduction techniq ues were employed. CTDIvol: 13.9 - 18.2 mGy. DLP: 1843 mGy-cm.. LIMITATIONS: None. FINDINGS: LOWER CHEST: No significant findings. No nodules or infiltrates. LIVER: Normal size. No masses. No dilated ducts. SPLEEN: Normal size. No focal lesions. PANCREAS: No masses. No significant calcifications. No adjacent inflammation or peripancreatic fluid collections. Pancreatic duct not dilated. GALLBLADDER: No identified stones by CT criteria. No inflammatory changes to suggest cholecystitis. ADRENAL GLANDS: Left adrenal mass now measures 1.9 cm compared to 1.5 cm 2014. Not clearly fat conta ining. RIGHT KIDNEY AND URETER: No solid masses. No significant calcifications. No hydronephrosis or hyd roureter. LEFT KIDNEY AND URETER: No solid masses. No significant calcifications. No hydronephrosis or hydr oureter. AORTA AND VESSELS: No aneurysm. No dissection. Renal arteries, SMA, celiac without stenosis. RETROPERITONEUM: No retroperitoneal adenopathy, hemorrhage or masses. BOWEL AND PERITONEAL CAVITY: No masses or inflammatory changes. No free fluid or peritoneal masses. APPENDIX: Normal. PELVIS: No mass. No free fluid. Normal bladder. ABDOMINAL WALL: No masses. No hernias. BONES: No significant or acute findings. OTHER: No other significant finding. IMPRESSION: No acute intra-abdominal process. Indeterminate left adrenal mass which is increased in size since 2014 COMMENT: Recommend MRI adrenal protocol, if the pacemaker is compatible. Otherwise CT adrenal protocol. TECHNICAL DOCUMENTATION: JOB ID: [id number] Quality ID # [id number]: Final reports with documentation of one or more dose reduction techniques (e.g., Au tomated exposure control, adjustment of the mA and/or kV according to patient size, use of iterative reconstruction technique) 2010 [employer]- All Rights Reserved Reading location - IP/workstation name: [email or web address]
[2018-03-24] MEDS ORDERED: CEFTRIAXONE 2 GM/D5W RTU 2 GM/50 ML RTUPB IV ONE (20:27)
[2018-03-24] MEDS ORDERED: AZITHROMYCIN 250 MG TABLET PO ONE (20:28)
[2018-03-24] MEDS ORDERED: CEFTRIAXONE SODIUM 2,000 MG in DEXTROSE 5%-WATER 100 ML IV ONE (20:45)
[2018-03-24] MEDS ORDERED: RINGERS SOLUTION,LACTATED 1,000 ML IV PRN (22:41)
[2018-03-24] MEDS ORDERED: MAG HYDROX/AL HYDROX/SIMETH SUSP 30 ML UDCUP PO PRN (22:41)
[2018-03-24] MEDS ORDERED: IPRATROPIUM/ALBUTEROL 0.5-2.5 MG/3 ML AMPUL NEB PRN (22:41)
[2018-03-24] MEDS ORDERED: ACETAMINOPHEN 325 MG TABLET PO PRN (22:41)
[2018-03-24] MEDS ORDERED: DEXTROSE 40% GEL 15 GM TUBE PO PRN ×2 (22:46)
[2018-03-24] MEDS ORDERED: INSULIN LISPRO 100 UNIT/ML 3 ML VIAL SUBCUT PRN (22:46)
[2018-03-24] MEDS ORDERED: GLUCAGON,HUMAN RECOMB 1 MG INJ IM PRN (22:46)
[2018-03-24] MEDS ORDERED: DEXTROSE 50%-WATER 25 GM/50 ML DISP.SYRIN IV PRN ×2 (22:46)
[2018-03-24 23:44] LABS: INTERNATIONAL RATION (INR) 1.96; PROTHROMBIN TIME 23.3 SEC (11.4-15.4)
--- NOTE | 2018-03-25 | PDOC H&P ---
History of Present Illness Admission Date/PCP: 03/24/18 20:49 [place] Patient complains of: Home health ask him to come to the emergency department as persistent nausea, vomiting and diarrhea History of Present Illness: MALVIN BELLAMY is a 67 year old male with extensive medical history remarkable for chronic respiratory failure on 2 L oxygen, wheelchair bound, on chronic Coumadin, rest that I will outline below. Patient tells me that he has been feeling sick for the last 2 days with progressive shortness of breath, sputum clear and brownish, wheezing on and off, subjective fever and chills, he is feeling cold, denies nausea, vomiting, chest pain. Today he started with persistent nausea with about 4-5 episodes of nonbloody vomiting, had about 10 episodes of nonbloody diarrhea. He could not hold any food, liquids or medications. Complains of diffuse abdominal pain to palpation with cramping. Complains of burning chest pain after vomiting. Feels generalized weakness. Tells me that her have similar symptoms a week ago and improved with antibiotics. Chest x-ray shows probably left lower lobe infiltrate, was started on IV Rocephin and IV azithromycin. 1 L IV fluids given. Patient is baseline nonambulatory. Has a left side Port-A-Cath to draw his PT as he is on Coumadin. Past Medical History Cardiac Medical History: Reports: Atrial Fibrillation, Congestive Heart Failure , Coronary Artery Disease, Myocardial Infarction, Hyperlipidema, Hypertension, Peripheral Vascular Disease, Pulmonary Embolism Pulmonary Medical History: Reports: Asthma, Chronic Obstructive Pulmonary Disease (COPD), Pneumonia, Sleep Apnea Pulmonary History Note: History of pulmonary embolism Endocrine Medical History: Reports: Diabetes Mellitus Type 2 - insulin-dependent GI Medical History: Reports: Gastroesophageal Reflux Disease, Hiatal Hernia Musculoskeltal Medical History: Reports: Arthritis - neck and head, Fibromyalgia Psychiatric Medical History: Reports: Depression, Post Traumatic Stress Disorder Hematology: Denies: Anemia, Hemophilia, Sickle Cell Disease Infectious Medical History: Reports: Methicillin-Resistant Staph Aureus Past Surgical History Past Surgical History: Reports: Cardiac Catheterization, Orthopedic Surgery - Bilat knees,back, right ankle, right elbow, Pacemaker, Vascular Surgery - stents x8 Social History Lives with: Spouse/Significant other Smoking Status: Former Smoker Frequency of Alcohol Use: None Hx Recreational Drug Use: No Hx Prescription Drug Abuse: No Family History Family History: Reviewed & Not Pertinent Parental Family History Reviewed: No Children Family History Reviewed: NA Sibling(s) Family History Reviewed.: NA Medication/Allergy Allergies/Adverse Reactions: celecoxib [From Celebrex] Allergy (Unknown, Verified 05/07/15 14:18) codeine [Codeine] Allergy (Unknown, Verified 05/07/15 14:18) fluticasone [Fluticasone] Allergy (Unknown, Verified 05/07/15 14:18) gabapentin [Gabapentin] Allergy (Unknown, Verified 05/07/15 14:18) oxycodone HCl [From Percocet] Allergy (Unknown, Verified 05/07/15 14:18) pentazocine lactate [From Talwin] Allergy (Unknown, Verified 05/07/15 14:18) simvastatin [From Zocor] Allergy (Unknown, Verified 05/07/15 14:18) adhesive tape [Adhesive Tape] Allergy (Verified 05/07/15 14:18) latex [Latex] Allergy (Verified 05/07/15 14:18) oxycodone terephthalate [From Percodan] Allergy (Verified 05/07/15 14:18) prednisone [Prednisone] Allergy (Verified 05/07/15 14:18) topiramate [From Topamax] Allergy (Verified 05/07/15 14:18) albuterol [Albuterol] Adverse Reaction (Unknown, Verified 05/07/15 14:18) dry throat verisol Allergy (Uncoded 05/07/15 14:18) Review of Systems Review of Systems: As outlined in the HPI, others negative Physical Exam Vital Signs: Temp Pulse Resp BP Pulse Ox 98.9 F 64 16 155/68 H 96 03/24/18 22:00 03/24/18 16:30 03/24/18 21:01 03/24/18 22:25 03/24/18 22:25 Intake & Output 03/23/18 03/24/18 03/25/18 06:59 06:59 06:59 Intake Total 50 Balance 50 Additional comments: General appearance: Elderly, decondition, alert and cooperative, and appears to be in no acute distress, wearing nasal cannula. Head: Normocephalic Eyes: PEERL, EOMI, vision is grossly intact. Ears: External auditory canal and tympanic membranes clear, hearing grossly intact. Nose: No nasal discharge. Throat: Oral cavity and pharynx dry. No inflammation, swelling, exudate or lesions. Neck: Neck supple, nontender without lymphadenopathy, masses or thyromegaly. Cardiac: Normal S1 and S2. No S3, S4 or murmurs. Rhythm is regular. There is no peripheral edema, cyanosis or pallor. Extremities are warm and well perfused. No carotid bruits. Lungs: Clear to auscultation and percussion without rales, rhonchi, wheezing or diminished breath sounds. Not using accessory muscles. Abdomen: Positive bowel sounds. Soft. Nondistended, nontender. No guarding or rebound. No masses. No hepatosplenomegaly Extremities: No significant deformity or joint abnormality. No edema. Peripheral pulses intact. No varicosities. Neurological: Cranial nerves II through XII grossly intact. Strength and sensation symmetric and intact throughout. Reflexes 2+ throughout. Skin: Skin normal color, texture and turgor with stage I buttock ulcer, warm and dry. Psychiatric: The mental examination revealed the patient was oriented to person , place, and time. The patient was able to demonstrate good judgment on recent , without hallucinations, abnormal affect or abnormal behaviors. Results Laboratory Results: 03/24/18 21:15 Troponin I 0.012 03/24/18 03/24/18 03/24/18 16:55 16:55 16:55 WBC 8.2 RBC 4.57 Hgb 13.5 Hct 39.2 MCV 86 MCH 29.5 MCHC 34.4 RDW 15.3 H Plt Count 141 L Seg Neutrophils % 76.3 Lymphocytes % 17.5 Monocytes % 5.7 Eosinophils % 0.1 Basophils % 0.4 Absolute Neutrophils 6.3 Absolute Lymphocytes 1.4 Absolute Monocytes 0.5 Absolute Eosinophils 0.0 Absolute Basophils 0.0 Sodium 136.8 L Potassium 4.6 Chloride 102 Carbon Dioxide 24 Anion Gap 11 BUN 6 L Creatinine 0.59 Est GFR ( Amer) > 60 Est GFR (Non-Af Amer) > 60 Glucose 141 H Calcium 9.1 Total Bilirubin 0.9 Direct Bilirubin 0.4 AST 22 ALT < 6 L Alkaline Phosphatase 81 Creatine Kinase 32 L CK-MB (CK-2) 0.44 Troponin I < 0.012 NT-Pro-B Natriuret Pep Total Protein 7.5 Albumin 3.6 Lipase 03/24/18 03/24/18 03/24/18 16:55 16:55 21:15 WBC RBC Hgb Hct MCV MCH MCHC RDW Plt Count Seg Neutrophils % Lymphocytes % Monocytes % Eosinophils % Basophils % Absolute Neutrophils Absolute Lymphocytes Absolute Monocytes Absolute Eosinophils Absolute Basophils Sodium Potassium Chloride Carbon Dioxide Anion Gap BUN Creatinine Est GFR ( Amer) Est GFR (Non-Af Amer) Glucose Calcium Total Bilirubin Direct Bilirubin AST ALT Alkaline Phosphatase Creatine Kinase CK-MB (CK-2) Troponin I 0.012 NT-Pro-B Natriuret Pep 2520 H Total Protein Albumin Lipase 101.6 Impressions: Chest X-Ray 03/24/18 16:51 IMPRESSION: Cannot exclude very limited left lower lobe pneumonia. Abdomen/Pelvis CT 03/24/18 17:33 IMPRESSION: No acute intra-abdominal process. Indeterminate left adrenal mass which is increased in size since 2013 Assessment & Plan - Diagnosis (1) Community acquired pneumonia Qualifiers: Laterality: left Lung location: lower lobe of lung Qualified Code(s): J18.1 - Lobar pneumonia, unspecified organism Is this a current diagnosis for this admission?: Yes Plan: Patient comes with respiratory symptoms for 2 days, chest x-ray shows possible left lower lobe infiltrate. Patient has been started on IV Rocephin and IV azithromycin, I will continue with IV Levaquin. Patient does not have any leukocytosis or fever. Patient seems to be dehydrated and will continue on IV fluids. I do not feel patient needs to be on steroids. Nebulizer treatments every 3 hours as needed. RT consult. Incentive spirometry. (2) Acute gastroenteritis Is this a current diagnosis for this admission?: Yes Plan: Patient comes for persistent nausea, vomiting and nonbloody diarrhea, patient has some stools greenish in color semisolid on his buttocks. We will send C. difficile that is less likely and stool cultures. For now he will be on supportive measures. (3) Chronic systolic congestive heart failure Is this a current diagnosis for this admission?: Yes Plan: Patient has multiple visits and admissions to our facility but in none of them has been mention his ejection fraction. Patient will be on IV fluids as his seems to be dehydrated and will be careful to not overload him. He is on p.o. Lasix at home. (4) GERD (gastroesophageal reflux disease) Is this a current diagnosis for this admission?: Yes Plan: Continue with home PPI (5) Opiate dependence, continuous Is this a current diagnosis for this admission?: Yes Plan: Patient with chronic generalized pain, on morphine at home. (6) CAD (coronary artery disease) Is this a current diagnosis for this admission?: Yes Plan: No cardiac symptoms, however I will do cardiac enzymes x3 secondary to his first complaint of chest pain (7) Cerebrovascular disease Is this a current diagnosis for this admission?: Yes Plan: Patient has received a left hemiparesis, wheelchair bound, patient is on anticoagulation with Coumadin and is not on a statins. Patient tells me he is on Coumadin also for severe vascular disease. (8) Diabetes mellitus type 2 in obese Is this a current diagnosis for this admission?: Yes Plan: Continue with home insulin. Accu-Cheks q. before meals and at bedtime, insulin lispro sliding scale and hypoglycemia protocol. - Time Time Spent: 50 to 70 Minutes Anticipated discharge: Home - Inpatient Certification Based on my medical assessment, after consideration of the patient's comorbidities, presenting symptoms, or acuity I expect that the services needed warrant INPATIENT care.: Yes I certify that my determination is in accordance with my understanding of Medicare's requirements for reasonable and necessary INPATIENT services [42 CFR 412.3e].: Yes Medical Necessity: Risk of Complication if Not Cared For in Hospital - Plan Summary Plan Summary: Case discussed with patient and , agree with plan
[2018-03-25] MEDS: PROMETHAZINE HCL INJ 25 MG/1 ML VIAL IV PRN ×2 (01:04→14:29)
[2018-03-25] MEDS: TEMAZEPAM 7.5 MG CAPSULE PO PRN (02:01)
[2018-03-25 06:30] LABS: ABSOLUTE LYMPHOCYTES (AUTO) 1.5 10^3/uL (0.5-4.7); ABSOLUTE MONOCYTES (AUTO) 1.2 10^3/uL (0.1-1.4); ABSOLUTE NEUT (AUTO) 12.6 10^3/uL (1.7-8.2); HEMATOCRIT 39.4 % (37.9-51.0); HEMOGLOBIN 13.4 g/dL (13.5-17.0); LYMPHOCYTES % (AUTO) 10.1 % (13-45); MEAN CORPUSCULAR HEMOGLOBIN 29.4 pg (27.0-33.4); MEAN CORPUSCULAR HGB CONC 34.1 g/dL (32.0-36.0); MEAN CORPUSCULAR VOLUME 86 fl (80-97); MONOCYTES % (AUTO) 7.6 % (3-13); PLATELET COUNT 147 10^3/uL (150-450); RED BLOOD COUNT 4.58 10^6/uL (4.35-5.55); RED CELL DISTRIBUTION WIDTH 15.2 % (11.5-14.0); SEGMENTED NEUTROPHILS % (AUTO) 82.3 % (42-78); TOTAL CELLS COUNTED % (AUTO) 100 %; WHITE BLOOD COUNT 15.3 10^3/uL (4.0-10.5)
[2018-03-25 06:41] LABS: ANION GAP 15 (5-19); BLOOD UREA NITROGEN 6 mg/dL (7-20); CALCIUM 9.2 mg/dL (8.4-10.2); CARBON DIOXIDE 23 mmol/L (22-30); CHLORIDE 102 mmol/L (98-107); GLUCOSE 147 mg/dL (75-110); PHOSPHORUS 3.6 mg/dL (2.5-4.5); SODIUM 139.5 mmol/L (137-145)
[2018-03-25 06:53] LABS: POTASSIUM 3.4 mmol/L (3.6-5.0)
[2018-03-25] MEDS: LEVOFLOXACIN 750 MG/D5W RTU 750 MG/150 ML RTUPB IV SCH (09:20)
[2018-03-25] MEDS ORDERED: (PENDING PHARMACY ID) (Trazodone Hcl [Desyrel] 200 MG) PO PRN (12:37)
[2018-03-25] MEDS ORDERED: IPRATROPIUM BROMIDE HFA 17 MCG/PUFF 200 PUFF/12.9 GM MDI IH PRN (12:37)
[2018-03-25] MEDS ORDERED: CARBOXYMETHYLCELLULOSE SOD 0.5% 0.4 ML DROPERETTE OU PRN (12:37)
[2018-03-25] MEDS ORDERED: NITROGLYCERIN 0.4 MG/TAB 25 TAB/BOTTLE SL PRN (12:37)
[2018-03-25] MEDS ORDERED: SIMETHICONE 80 MG TAB.CHEW PO PRN (12:37)
[2018-03-25] MEDS ORDERED: (PENDING PHARMACY ID) (Metoprolol Succinate [Toprol Xl 200 Mg Tablet] 200 MG) PO SCH (12:45)
[2018-03-25] MEDS ORDERED: (PENDING PHARMACY ID) (Warfarin Sodium 7.5 MG) PO SCH (12:45)
[2018-03-25] MEDS ORDERED: IPRATROPIUM/ALBUTEROL 0.5-2.5 MG/3 ML AMPUL NEB PRN (12:59)
--- NOTE | 2018-03-25 13:42 | PROGRESS NOTE E ---
Progress Note NAME: MALVIN BELLAMY : 1950 AGE: 67Y DATE: 03/25/2018 ROOM: 533 SUBJECTIVE: The patient is currently lying in bed. His is present at the bedside, active in the patient's care. Patient states that he is in a great deal of pain. He has not received his chronic medications and is quite concerned about this. The patient has had no reported episodes of fevers, chills. The patient states he has had multiple episodes of vomiting as well as diarrhea but I do not see where these are documented, per se. The patient has been afebrile. His blood pressures have been in a good range. He has not been overtly tachypneic either. The patient does not voice any other concerns at this time. To mention, the patient did state that he had been having some difficulty swallowing recently so there is some concern for a possible aspiration as well. REVIEW OF SYSTEMS: The rest of review of systems is negative. MEDICATION: Medications have been reviewed. OBJECTIVE: GENERAL: The patient is a 67-year-old male, who is awake, alert. He is oriented to person, place, time, and situation. He is verbal. Does not appear to be in any acute distress. Not very engaged. VITAL SIGNS: Temperature is 97.6, pulse 64, respirations 22, blood pressure 132/51, oxygen saturation 99% on room air. SKIN: Warm and dry. No rash. He is not diaphoretic. HEENT: Mucous membranes appear moist. No overt evidence of JVP. CVS: Patient is in sinus rhythm. CHEST: Rhonchorous breath sounds throughout lung davidson. He has got a pretty significant rattle. ABDOMEN: Nondistended. EXTREMITIES: There is no edema. All 4 extremities appropriately warm to the touch. PSYCHIATRIC: The patient has an odd affect. DIAGNOSTIC VALUES: Hematology obtained on 03/25/2018: WBCs are 15.3, hemoglobin is 30.4, hematocrit is 34.9, platelet count is 147,000. Chemistry obtained on 03/25/2018: Sodium is 139, potassium is 3.4, chloride is 102, carbon dioxide 23, BUN 6, creatinine is 0.64. Glucose 147, calcium is 9.2, phosphorous 3.6, magnesium is 1.4, troponin 0.039. IMPRESSION AND PLAN: 1. COMMUNITY ACQUIRED PNEUMONIA VERSUS AN ASPIRATION PNEUMONIA. We will have speech therapy evaluate the patient. In the interim, the patient does show some evidence of improvement, therefore we will cover the patient with CAP coverage for now and possibly expand coverage pending the patient's response. 2. CHRONIC SYSTOLIC CONGESTIVE HEART FAILURE. The patient appears to be optivolemic at this point. 3. ACUTE GASTROENTERITIS VERSUS OPIATE WITHDRAWAL. We will resume the patient's home medications. Stool studies have been unremarkable. We will treat symptomatically. 4. GASTROESOPHAGEAL REFLUX DISEASE. Continue PPI therapy. 5. OPIATE DEPENDENCY, CONTINUOUS. The patient is on massive amounts of medications at home. 6. CORONARY ARTERY DISEASE. Cardiac enzymes are not remarkable. 7. CEREBROVASCULAR DISEASE. Patient has a history of left hemiparesis. Wheelchair bound. He is on chronic anticoagulation as well as statins. 8. DIABETES MELLITUS, TYPE-2. We will continue sliding scale coverage. DISPOSITION: The patient is a FULL CODE. Pending patient's symptomatology and diagnostic findings, will reevaluate in the a.m. Time spent on this followup, including assessment, plan, physical examination, patient education, review of records, and family meeting is 25 minutes. DICTATING PHYSICIAN: BALJINDER NAJERA NP [id number] PHY#: [id number] ID: [id number] JOB#: [id number] ACCT: [id number] cc: >
[2018-03-25] MEDS ORDERED: TRAZODONE HCL 50 MG TABLET PO PRN (13:47)
[2018-03-25] MEDS: TAMSULOSIN HCL 0.4 MG CAP.SR.24H PO SCH (14:32)
[2018-03-25] MEDS: METOPROLOL SUCCINATE 50 MG TAB.SR.24H PO SCH (14:32)
[2018-03-25] MEDS: ASPIRIN 81 MG TABLET, ENT COATED PO SCH (14:32)
[2018-03-25] MEDS: PREGABALIN 100 MG CAPSULE PO SCH ×2 (14:32→21:38)
[2018-03-25] MEDS: MORPHINE SULFATE SR 30 MG TABLET PO SCH ×2 (14:33→21:38)
[2018-03-25] MEDS: BUSPIRONE HCL 10 MG TABLET PO SCH ×2 (14:33→17:41)
[2018-03-25] MEDS: METOCLOPRAMIDE HCL 10 MG TABLET PO SCH ×2 (14:33→17:41)
[2018-03-25] MEDS: LORATADINE 10 MG TABLET PO SCH (14:33)
[2018-03-25] MEDS ORDERED: LEVALBUTEROL HCL NEB 1.25 MG/3 ML AMPUL NEB PRN (16:54)
[2018-03-25] MEDS: POLYETHYLENE GLYCOL 3350 POWDER 17 GM/1 PACKET PO SCH (17:35)
[2018-03-25] MEDS: MAGNESIUM OXIDE 400 MG TABLET PO SCH (17:40)
[2018-03-25] MEDS: METFORMIN HCL 500 MG TABLET PO SCH (17:41)
[2018-03-25] MEDS: RANOLAZINE 500 MG TAB.SR.12H PO SCH (17:42)
[2018-03-25] MEDS ORDERED: (PENDING PHARMACY ID) (Ranolazine [Ranexa] 1,000 MG) PO SCH (18:00)
[2018-03-25] MEDS: SENNOSIDES/DOCUSATE 8.6-50 MG 1 EACH TABLET PO SCH (21:37)
[2018-03-25] MEDS: WARFARIN SODIUM 7.5 MG TABLET PO SCH (21:38)
[2018-03-25] MEDS: ATORVASTATIN CALCIUM 40 MG TABLET PO SCH (21:39)
[2018-03-25] MEDS ORDERED: ATORVASTATIN CALCIUM 80 MG TABLET PO SCH (22:00)
[2018-03-26] MEDS: MORPHINE SULFATE SR 30 MG TABLET PO SCH ×3 (05:35→21:52)
[2018-03-26] MEDS: LANSOPRAZOLE 15 MG TAB.RAP.DR PO SCH (05:35)
[2018-03-26 06:15] LABS: INTERNATIONAL RATION (INR) 2.26; PROTHROMBIN TIME 26.1 SEC (11.4-15.4)
[2018-03-26 06:16] LABS: ABSOLUTE LYMPHOCYTES (AUTO) 2.8 10^3/uL (0.5-4.7); ABSOLUTE MONOCYTES (AUTO) 1.1 10^3/uL (0.1-1.4); ABSOLUTE NEUT (AUTO) 7.2 10^3/uL (1.7-8.2); BASOPHILS % (AUTO) 0.3 % (0-2); EOSINOPHILS % (AUTO) 0.2 % (0-6); HEMATOCRIT 39.2 % (37.9-51.0); HEMOGLOBIN 13.3 g/dL (13.5-17.0); MEAN CORPUSCULAR HEMOGLOBIN 29.1 pg (27.0-33.4); MEAN CORPUSCULAR HGB CONC 33.9 g/dL (32.0-36.0); MEAN CORPUSCULAR VOLUME 86 fl (80-97); PLATELET COUNT 127 10^3/uL (150-450); RED BLOOD COUNT 4.57 10^6/uL (4.35-5.55); RED CELL DISTRIBUTION WIDTH 15.5 % (11.5-14.0); SEGMENTED NEUTROPHILS % (AUTO) 64.5 % (42-78); TOTAL CELLS COUNTED % (AUTO) 100 %; WHITE BLOOD COUNT 11.1 10^3/uL (4.0-10.5)
[2018-03-26 06:52] LABS: ALANINE AMINOTRANSFERASE 12 U/L (21-72); ALBUMIN 3.2 g/dL (3.5-5.0); ALKALINE PHOSPHATASE 68 U/L (38-126); ANION GAP 13 (5-19); ASPARTATE AMINO TRANSFERASE 17 U/L (17-59); BILIRUBIN,DIRECT 0.3 mg/dL (0.0-0.4); BILIRUBIN,TOTAL 0.9 mg/dL (0.2-1.3); BLOOD UREA NITROGEN 6 mg/dL (7-20); CALCIUM 8.8 mg/dL (8.4-10.2); CARBON DIOXIDE 28 mmol/L (22-30); CHLORIDE 100 mmol/L (98-107); GLUCOSE 104 mg/dL (75-110); SODIUM 141.1 mmol/L (137-145); TOTAL PROTEIN 6.3 g/dL (6.3-8.2)
[2018-03-26 06:56] LABS: POTASSIUM 2.9 mmol/L (3.6-5.0)
[2018-03-26] MEDS ORDERED: POTASSIUM CHLORIDE 20 MEQ/50 ML RTU IV ONE (07:30)
[2018-03-26] MEDS ORDERED: POTASSIUM CHLORIDE 10 MEQ CAPSULE.ER PO ONE ×2 (08:00→16:30)
[2018-03-26] MEDS: METFORMIN HCL 500 MG TABLET PO SCH ×2 (08:14→16:32)
[2018-03-26] MEDS: TAMSULOSIN HCL 0.4 MG CAP.SR.24H PO SCH (09:48)
[2018-03-26] MEDS: BUSPIRONE HCL 10 MG TABLET PO SCH ×3 (09:48→17:27)
[2018-03-26] MEDS: ASPIRIN 81 MG TABLET, ENT COATED PO SCH (09:48)
[2018-03-26] MEDS: LORATADINE 10 MG TABLET PO SCH (09:48)
[2018-03-26] MEDS: ISOSORBIDE MONONITRATE 60 MG TAB.ER.24H PO SCH (09:49)
[2018-03-26] MEDS: LEVOFLOXACIN 750 MG/D5W RTU 750 MG/150 ML RTUPB IV SCH (09:49)
[2018-03-26] MEDS: POTASSIUM CHLORIDE 10 MEQ CAPSULE.ER PO SCH (09:49)
[2018-03-26] MEDS: PREGABALIN 100 MG CAPSULE PO SCH ×2 (09:50→21:51)
[2018-03-26] MEDS: MAGNESIUM OXIDE 400 MG TABLET PO SCH ×2 (09:50→17:27)
[2018-03-26] MEDS: POLYETHYLENE GLYCOL 3350 POWDER 17 GM/1 PACKET PO SCH ×2 (09:50→17:10)
[2018-03-26] MEDS: FINASTERIDE 5 MG TABLET PO SCH (09:50)
[2018-03-26] MEDS: METOCLOPRAMIDE HCL 10 MG TABLET PO SCH ×3 (09:51→17:27)
[2018-03-26] MEDS: RANOLAZINE 500 MG TAB.SR.12H PO SCH ×2 (09:51→17:27)
[2018-03-26] MEDS: SENNOSIDES/DOCUSATE 8.6-50 MG 1 EACH TABLET PO SCH ×2 (09:51→21:52)
[2018-03-26] MEDS: METOPROLOL SUCCINATE 50 MG TAB.SR.24H PO SCH (09:52)
[2018-03-26] MEDS: PROMETHAZINE HCL 25 MG TABLET PO PRN ×3 (09:52→22:01)
[2018-03-26] MEDS: OXYCODONE HCL IR 5 MG TABLET PO PRN ×2 (09:52→17:27)
[2018-03-26] MEDS ORDERED: POTASSIUM CHLORIDE 20 MG PO SCH (10:00)
[2018-03-26] MEDS ORDERED: SPIRONOLACTONE 25 MG TABLET PO SCH (10:00)
[2018-03-26] MEDS ORDERED: (PENDING PHARMACY ID) (Isosorbide Mononitrate [Isosorbide Mononitrate Er] 120 MG) PO SCH (10:00)
[2018-03-26] MEDS ORDERED: METFORMIN HCL 2000 MG PO SCH (10:00)
--- NOTE | 2018-03-26 21:16 | PROGRESS NOTE E ---
Progress Note NAME: MALVIN BELLAMY : 1950 AGE: 67Y DATE: 03/26/2018 ROOM: 533 SUBJECTIVE: The patient is out of bed to the bedside chair. He states that he feels much better today. The patient denies any nausea, vomiting, diarrhea. His shortness of breath has improved. He has had a strong cough and has produced some sputum. The patient also has complained of urinary retention which appears to be a chronic issue for him and actually self-caths at times. The patient does not voice any other concerns at this time. REVIEW OF SYSTEMS: The rest of the review of systems is negative. MEDICATIONS: Medications have been reviewed. OBJECTIVE: GENERAL: The patient is a 67-year-old male who is awake, alert, and oriented to person, time, place, situation. He is verbal, conversational. He does not appear to be in any acute distress. VITAL SIGNS: Temperature is 97.5, pulse 82, respirations 16, blood pressure is 117/98, oxygen saturation is 100% on 2 liters nasal cannula. SKIN: Warm and dry. No rash. He is not diaphoretic. HEENT: Pupils equal, round, and react to light and accommodation. Conjunctivae are pink. No evidence of JVP. CARDIOVASCULAR: Heart is regular. There is no murmur or rub. CHEST: Has rhonchorous breath sounds in left lung field. Symmetrical, unlabored. ABDOMEN: Soft, nontender, nondistended. BACK: No CVA tenderness or sacral edema. EXTREMITIES: No clubbing, cyanosis, edema. PSYCHIATRIC: Appropriate affect, pleasant mood. DIAGNOSTICS: Lab values are as follows - Hematology obtained on 03/26/2018; WBC is 11.1, hemoglobin 13.3, hematocrit is 39.2, platelet count is 127,000. Chemistry obtained on 03/26/2018; sodium is 141, potassium 2.9, chloride is 100, carbon dioxide 28, BUN 6, creatinine is 0.58, glucose 104, calcium is 8.8, magnesium is 1.5, bilirubin is 0.9, AST 17, ALT 12, alk-phos 68, total protein is 2.3, albumin 3.2. IMPRESSION AND PLAN: 1. COMMUNITY ACQUIRED PNEUMONIA VERSUS AN ASPIRATION PNEUMONIA. The patient was seen and evaluated by speech therapy and actually did quite well today. Therefore, less likely. So, the patient has improved with community acquired pneumonia coverage. We will continue this for now. The transition to p.o. for possible discharge in the a.m. 2. CHRONIC SYSTOLIC CONGESTIVE HEART FAILURE. The patient appears to be optivolemic at this point. 3. ACUTE GASTROENTERITIS VERSUS OPIATE WITHDRAWAL. Symptoms completely resumed once the patient's opiates were resumed. 4. GERD. Continue PPI therapy. 5. OPIATE DEPENDENCY CONTINUOUS. We will continue the patient's large amount of medications that he is on at home. 6. CORONARY ARTERY DISEASE. Cardiac enzymes were unremarkable. 7. CEREBROVASCULAR DISEASE. He has a history of a left hemiparesis, is on chronic anticoagulation as well as statins. 8. DIABETES MELLITUS TYPE 2. Continue sliding scale coverage. CODE STATUS: The patient is a full code. DISPOSITION: Depending on the patient's symptomatology and diagnostic findings will reevaluate in the a.m. TIME SPENT: On this follow up, including assessment and plan, physical examination, patient education, review of records is 25 minutes. DICTATING PHYSICIAN: BALJINDER NAJERA NP [id number] PHY#: [id number] ID: [id number] JOB#: [id number] ACCT: [id number] cc: >
[2018-03-26] MEDS: ATORVASTATIN CALCIUM 40 MG TABLET PO SCH (21:52)
[2018-03-26] MEDS: WARFARIN SODIUM 7.5 MG TABLET PO SCH (21:53)
[2018-03-26] MEDS: TEMAZEPAM 7.5 MG CAPSULE PO PRN (22:01)
[2018-03-27] MEDS ORDERED: NORMAL SALINE 500 ML IV ONE ×2 (01:35→12:25)
[2018-03-27] MEDS ORDERED: NORMAL SALINE 250 ML IV ONE (04:20)
[2018-03-27] MEDS: LANSOPRAZOLE 15 MG TAB.RAP.DR PO SCH (06:31)
[2018-03-27] MEDS: MORPHINE SULFATE SR 30 MG TABLET PO SCH (06:31)
[2018-03-27 06:47] LABS: HEMOGLOBIN 11.8 g/dL (13.5-17.0); MEAN CORPUSCULAR HEMOGLOBIN 29.3 pg (27.0-33.4); MEAN CORPUSCULAR HGB CONC 33.6 g/dL (32.0-36.0); MEAN CORPUSCULAR VOLUME 87 fl (80-97); PLATELET COUNT 111 10^3/uL (150-450); RED BLOOD COUNT 4.02 10^6/uL (4.35-5.55); RED CELL DISTRIBUTION WIDTH 14.9 % (11.5-14.0); WHITE BLOOD COUNT 8.7 10^3/uL (4.0-10.5)
[2018-03-27 07:21] LABS: ANION GAP 7 (5-19); BLOOD UREA NITROGEN 7 mg/dL (7-20); CALCIUM 8.2 mg/dL (8.4-10.2); CARBON DIOXIDE 28 mmol/L (22-30); CHLORIDE 102 mmol/L (98-107); GLUCOSE 93 mg/dL (75-110); POTASSIUM 4.1 mmol/L (3.6-5.0); SODIUM 136.8 mmol/L (137-145)
[2018-03-27] MEDS: POLYETHYLENE GLYCOL 3350 POWDER 17 GM/1 PACKET PO SCH (10:46)
[2018-03-27] MEDS: METFORMIN HCL 500 MG TABLET PO SCH (10:47)
[2018-03-27] MEDS: MAGNESIUM OXIDE 400 MG TABLET PO SCH (10:48)
[2018-03-27] MEDS: POTASSIUM CHLORIDE 10 MEQ CAPSULE.ER PO SCH (10:48)
[2018-03-27] MEDS: METOPROLOL SUCCINATE 50 MG TAB.SR.24H PO SCH (10:48)
[2018-03-27] MEDS: ISOSORBIDE MONONITRATE 60 MG TAB.ER.24H PO SCH (10:49)
[2018-03-27] MEDS: TAMSULOSIN HCL 0.4 MG CAP.SR.24H PO SCH (10:49)
[2018-03-27] MEDS: ASPIRIN 81 MG TABLET, ENT COATED PO SCH (10:50)
[2018-03-27] MEDS: SENNOSIDES/DOCUSATE 8.6-50 MG 1 EACH TABLET PO SCH (10:50)
[2018-03-27] MEDS: FINASTERIDE 5 MG TABLET PO SCH (10:50)
[2018-03-27] MEDS: LORATADINE 10 MG TABLET PO SCH (10:50)
[2018-03-27] MEDS: OXYCODONE HCL IR 5 MG TABLET PO PRN (10:51)
[2018-03-27] MEDS: PREGABALIN 100 MG CAPSULE PO SCH (10:51)
[2018-03-27] MEDS: METOCLOPRAMIDE HCL 10 MG TABLET PO SCH (10:51)
[2018-03-27] MEDS: BUSPIRONE HCL 10 MG TABLET PO SCH (10:51)
[2018-03-27 11:36] VITALS: BP 123/68
[2018-03-28] MEDS ORDERED: CEFUROXIME 500 MG TABLET PO SCH (10:00)
--- NOTE | 2018-03-28 19:01 | DISCHARGE SUMMARY E ---
Discharge Summary NAME: MALVIN BELLAMY : 1950 AGE: 67Y ADMITTED: 03/24/2018 DISCHARGED: 03/27/2018 CODE STATUS: Full code. PRIMARY CARE PROVIDER: Jeff Neal M.D. DISCHARGE DIAGNOSES: 1. Community acquired pneumonia. 2. Chronic systolic congestive heart failure. 3. Acute gastroenteritis versus opiate withdrawal. 4. Gastroesophageal reflux disease. 5. Opiate dependency continuous. 6. Coronary artery disease. 7. Cerebrovascular disease with left hemiparesis. 8. Diabetes mellitus type 2. 9. Chronic anticoagulation. ACTIVITY: As tolerated. DIET: As tolerated. CONDITION: Fair. DIAGNOSTICS: Lab values are as follows - Hematology obtained on 03/27/2018; WBC 8.7, hemoglobin is 11.8, hematocrit 35.0, platelet count is 111,000. Coagulation obtained 03/26/2018; PT is 26.1, INR is 2.26. Chemistry obtained on 03/27/2018; sodium is 136, potassium 4.1, chloride is 102, carbon dioxide 28, BUN 7, creatinine 0.68, glucose 93, calcium is 8.2, magnesium is 1.5, phosphorus is 3.6, magnesium is 1.5, bilirubin 0.9, AST 17, ALT is 28, alk-phos 68. CK 32, CK-MB 0.44, troponin is 0.039. BNP is 2520. Total protein 6.3, albumin 3.2. Lipase is 101.6. Serology obtained on 03/25/2018 revealed C. diff toxin. Microbiology; blood cultures obtained on 03/24/2018 revealed no growth. Stool cultures obtained on 03/25/2018 reveals no growth. Chest x-ray obtained on 03/24/2018 reveals area of left lower lobe pneumonia. CT of the abdomen and pelvis obtained 03/24/2018 revealed no acute intraabdominal processes with an intermediate left adrenal mass, which has increased in size in comparison to 2013. EKG obtained on 03/24/2018 reveals sinus rhythm. PHYSICAL EXAMINATION: GENERAL: On examination the patient is a well-developed, well-nourished, 67-year-old male who is awake, alert, and oriented to person, place, time, and situation. He is verbal, conversational. He does not appear to be in any acute distress. VITAL SIGNS: Temperature is 97.7, pulse 89, respirations 18, blood pressure is 123/68, oxygen saturation is 100% on room air. SKIN: Warm and dry. No rash. He is not diaphoretic. HEENT: Pupils equal, round, reactive to light and accommodation. Conjunctivae are pink. There is no evidence of JVP. CARDIOVASCULAR: Heart is regular. There is no murmur or rub. CHEST: Clear, symmetrical, unlabored. ABDOMEN: Soft, nontender, nondistended. BACK: No CVA tenderness, no sacral edema. EXTREMITIES: No clubbing, cyanosis, or edema. PSYCHIATRIC: Appropriate affect, pleasant mood. HISTORY OF PRESENT ILLNESS: The patient is a 67-year-old male with a past medical history including atrial fibrillation, chronic anticoagulation, extensive medical history. The patient presented to the emergency department with a chief complaint of nausea, vomiting, and diarrhea. The patient who is chronically on O2 at home and wheelchair bound was found by home health to be sick for about 2 days with progress shortness of breath, sputum, as well as the nausea and vomiting. The patient also admitted to having wheezing on and off, subjective fevers and chills. The patient's symptoms had been ongoing to the point that he felt extremely weak. Upon presentation to the emergency department the patient's chest x-ray showed a left lower lobe infiltrate. The patient was covered with Rocephin and azithromycin for community acquired pneumonia and was referred to the hospitalist for admission and management. HOSPITAL COURSE: The patient was admitted to continuous telemetry unit. The patient was placed on antibiotic coverage for CAP as well as Mucinex, flutter valve, and incentive spirometry. The patient was resumed on all of his home medications including opiates, which did improve the patient's GI symptoms. The patient was titrated from his O2 to his home settings and the patient was able to get up in the chair without issue. The patient states that his symptoms have remarkably improved and he is eager for discharge. DISCHARGE PLAN: 1. The patient is to follow with his primary care provider within 3-5 days for hospital follow up. 2. The patient will need repeat INR. 3. Do advise the patient to have routine surveillance on adrenal mass noted on CT scan. TIME SPENT: On this discharge including assessment and plan, physical examination, patient education, review of record is 25 minutes. DICTATING PHYSICIAN: BALJINDER NAJERA NP [id number] PHY#: [id number] ID: [id number] JOB#: [id number] ACCT: [id number] cc:Jeana DAUGHERTY NP >
== END 2018-03-27 13:00 | disposition home or self-care (01) | DRG 194 ==
LOC: ER 16:28 → EH 20:49 → 5 22:52
PROVIDERS: ADMIT Internal Medicine; ATTEND Internal Medicine
DX: J18.9 Pneumonia, unspecified organism (principal); J96.10 Chronic respiratory failure, unspecified whether with hypoxia or hypercapnia; I50.22 Chronic systolic (congestive) heart failure; I69.354 Hemiplegia and hemiparesis following cerebral infarction affecting left non-dominant side; F11.23 Opioid dependence with withdrawal; J44.0 Chronic obstructive pulmonary disease with (acute) lower respiratory infection; E11.51 Type 2 diabetes mellitus with diabetic peripheral angiopathy without gangrene; I25.10 Atherosclerotic heart disease of native coronary artery without angina pectoris; I11.0 Hypertensive heart disease with heart failure; J44.9 Chronic obstructive pulmonary disease, unspecified; G47.30 Sleep apnea, unspecified; M79.7 Fibromyalgia; M13.88 Other specified arthritis, other site; F43.10 Post-traumatic stress disorder, unspecified; I48.91 Unspecified atrial fibrillation; E78.5 Hyperlipidemia, unspecified; Z99.81 Dependence on supplemental oxygen; Z79.01 Long term (current) use of anticoagulants; K21.9 Gastro-esophageal reflux disease without esophagitis; Z99.3 Dependence on wheelchair; F32.9 Major depressive disorder, single episode, unspecified; K52.9 Noninfective gastroenteritis and colitis, unspecified; I25.2 Old myocardial infarction; Z86.711 Personal history of pulmonary embolism; Z79.4 Long term (current) use of insulin; Z86.14 Personal history of Methicillin resistant Staphylococcus aureus infection; Z87.891 Personal history of nicotine dependence; Z88.8 Allergy status to other drugs, medicaments and biological substances; Z88.5 Allergy status to narcotic agent; Z91.040 Latex allergy status; Z87.442 Personal history of urinary calculi; L89.301 Pressure ulcer of unspecified buttock, stage 1; Z95.5 Presence of coronary angioplasty implant and graft
CPT/HCPCS: 36415; 71045; 74177; 80048; 80053; 82550; 82553; 82962; 83690; 83735; 83880; 84100; 84484; 85025; 85027; 85610; 85730; 87040; 87045; 87205; 87493; 93005; 93010; 94640; 94667; 94799; 96365; 96366; 96375; 96376; 99285; G8996-GN; G8997-GN; G8998-GN; J0696; J1642; J1956; J2060; J2550; J2765; J3010; J3480; J3490; J7040; J7050; J7120; J7620; S0028

== ENCOUNTER 2018-04-16 22:41 | Emergency (ER) | payer MEDICARE, OTHER ==
--- NOTE | 2018-04-16 23:04 | ER Document Report ---
ED General - General Chief Complaint: Chest Pain Stated Complaint: CHEST PAIN Time Seen by Provider: 04/16/18 22:52 Notes: Patient is a pleasant 67-year-old male who is well-known to the ED presents with complaint of what it initially was a chief complaint of chest pain and nausea. When I go in the room patient says that he has just usual mild lower left-sided chest pain which she says is not too concerning to him. He says that he actually has more abdominal pain as well as nausea. He is also had some coughing. He was discharged from the hospital a few weeks ago for pneumonia. He denies any fevers. Denies any vomiting associate with nausea. One episode of diarrhea. He still has a gallbladder. He does have a history of cardiac disease. He is followed by excavator operator at the [facility]. Had a stress test approximately 6 months ago. Stress test was normal. He denies any chest pain that feels anything like his previous heart attacks. TRAVEL OUTSIDE OF THE [place] IN LAST 30 DAYS: No - Related Data Allergies/Adverse Reactions: celecoxib [From Celebrex] Allergy (Unknown, Verified 04/16/18 23:17) codeine [Codeine] Allergy (Unknown, Verified 04/16/18 23:17) fluticasone [Fluticasone] Allergy (Unknown, Verified 04/16/18 23:17) gabapentin [Gabapentin] Allergy (Unknown, Verified 04/16/18 23:17) oxycodone HCl [From Percocet] Allergy (Unknown, Verified 04/16/18 23:17) pentazocine lactate [From Talwin] Allergy (Unknown, Verified 04/16/18 23:17) simvastatin [From Zocor] Allergy (Unknown, Verified 04/16/18 23:17) adhesive tape [Adhesive Tape] Allergy (Verified 04/16/18 23:17) latex [Latex] Allergy (Verified 04/16/18 23:17) oxycodone terephthalate [From Percodan] Allergy (Verified 04/16/18 23:17) prednisone [Prednisone] Allergy (Verified 04/16/18 23:17) topiramate [From Topamax] Allergy (Verified 04/16/18 23:17) albuterol [Albuterol] Adverse Reaction (Unknown, Verified 04/16/18 23:17) dry throat verisol Allergy (Uncoded 04/16/18 23:17) Past Medical History - Social History Smoking Status: Former Smoker Frequency of alcohol use: None Drug Abuse: None Family History: Reviewed & Not Pertinent - Past Medical History Cardiac Medical History: Reports: Hx Atrial Fibrillation, Hx Congestive Heart Failure, Hx Coronary Artery Disease, Hx Heart Attack, Hx Hypercholesterolemia, Hx Hypertension, Hx Peripheral Vascular Disease, Hx Pulmonary Embolism Pulmonary Medical History: Reports: Hx Asthma, Hx COPD, Hx Pneumonia, Hx Sleep Apnea Neurological Medical History: Reports: Hx Cerebrovascular Accident - x2 Endocrine Medical History: Reports: Hx Diabetes Mellitus Type 2 - insulin- dependent Renal/ Medical History: Reports: Hx Kidney Stones. Denies: Hx Peritoneal Dialysis GI Medical History: Reports: Hx Gastroesophageal Reflux Disease, Hx Hiatal Hernia Musculoskeletal Medical History: Reports Hx Arthritis - neck and head, Reports Hx Fibromyalgia Psychiatric Medical History: Reports: Hx Depression, Hx Post Traumatic Stress Disorder Traumatic Medical History: Reports: Hx Fractures Infectious Medical History: Reports: Hx MRSA Past Surgical History: Reports: Hx Cardiac Catheterization, Hx Cardiac Surgery - pacemaker, stents, aortic bypass, femfem bypass., Hx Orthopedic Surgery - Bilat knees,back, right ankle, right elbow, Hx Pacemaker, Hx Vascular Surgery - stents x8 - Immunizations Immunizations up to date: Yes Hx Diphtheria, Pertussis, Tetanus Vaccination: Yes Hx Pneumococcal Vaccination: 01/24/08 Review of Systems - Review of Systems Notes: My Normal Review Basic REVIEW OF SYSTEMS: CONSTITUTIONAL : Denies fever, chills, or sweats. Denies recent illness. EENT: Denies eye, ear, throat, or mouth pain or symptoms. Denies nasal or sinus congestion. CARDIOVASCULAR: Mild left lower side chest pain. RESPIRATORY: Denies cough, cold, or chest congestion. Denies shortness of breath, difficulty breathing, or wheezing. GASTROINTESTINAL: Mild diffuse abdominal pain. Nausea GENITOURINARY: Denies difficulty urinating, painful urination, burning, frequency, or blood in urine. MUSCULOSKELETAL: Denies neck or back pain or joint pain or swelling. SKIN: Denies rash or skin lesions. NEUROLOGICAL: Denies altered mental status or loss of consciousness. Denies headache. Denies weakness or paralysis or loss of use of either side. Denies problems with gait or speech. Denies sensory or motor loss. ALL OTHER SYSTEMS REVIEWED AND NEGATIVE. Physical Exam - Vital signs Vitals: Temp 98.6 F 04/16/18 22:45 - Notes Notes: General Appearance: Well nourished, alert, cooperative, no acute distress, no obvious discomfort. Vitals: reviewed, See vital signs table. Head: no swelling or tenderness to the head Eyes: PERRL, EOMI, Conjuctiva clear Mouth: No decreasd moisture Throat: No tonsillar inflammation, No airway obstruction, No lymphadenopathy Neck: Supple, no neck tenderness, No thyromegaly Lungs: No wheezing, No rales, No rhonci, No accessory muscle use, good air exchange bilaterally. Heart: Normal rate, Regular rythm, No murmur, no rub Abdomen: Normal BS, soft, No rigidity, mild diffuse abdominal tenderness to palpation., No guarding, no rebound, no abdominal masses, no organomegaly Extremities: strength 5/5 in all extremities, good pulses in all extremities, no swelling or tenderness in the extremities, no edema. Skin: warm, dry, appropriate color, no rash Neuro: speech clear, oriented x 3, normal affect, responds appropriately to questions. Course - Re-evaluation Re-evalutation: 04/16/18 23:49 I spoke with the patient's . She went to talk to me outside the room. She says that he has had some accidents where he had diarrhea on himself. She says that he is at times too weak to really get up and cleaned himself therefore she is concerned. I asked her how long he has been weak like this and she says is been over a year. I asked her if they have talked about long-term care or assisted living and she says they have but he does not want to do that. She says that sometimes his mind is not 100% and sometimes seems a bit confused however this is a recurrent problem as well not an acute problem. She feels that may be has some sort of GI issue being that he has been nauseous and having some diarrhea. 04/18/18 02:24 During patient's entire stay she was in no distress, did not appear to be in significant pain, is resting comfortably, and vital signs were normal. There is fibrosis of recurrent diarrhea at home. Order this stool culture for C. difficile however patient has been there for several hours and not had a single bowel movement. I suspect C. difficile is possible based on the fact the patient was a recent antibiotic for pneumonia. Patient clinically otherwise looks well and I feel is appropriate for outpatient treatment. I will go ahead and start him on Flagyl as I suspect C. difficile could be the culprit of his intermittent abdominal pain and diarrhea. Mother had mentioned that at times he can be hard to care for see wheelchair-bound. I talked at length about home health. They already have home health care at home. She says they come every morning. I talked her about assisted living facilities and nursing homes. She says that she is talked to him about that he does not want to go to any of those types of facilities. I informed her that the next step but then to be did speak with the primary care doctor about whether or not they could potentially increase their home health care and assistance at home. Patient's is agreeable with this. Informed patient's that at any time she feels that he is getting worse or she is having further difficulty caring for him then she can return to the ER and we will reassess him. Encouraged him return here immediately if he has any blood in his stool, fevers, intractable vomiting, or if he has worsening pain or appears unwell. Patient and agree with plan and patient will be discharged home. Dictation of this chart was performed using voice recognition software; therefore, there may be some unintended grammatical errors. - Vital Signs Vital signs: Temp Pulse Resp BP Pulse Ox 98.6 F 19 156/68 H 100 04/16/18 22:45 04/17/18 03:01 04/17/18 03:01 04/17/18 03:01 - Laboratory Result Diagrams: 04/16/18 23:15 04/16/18 23:15 Laboratory results interpreted by me: 04/16/18 04/16/18 23:15 23:15 RBC 4.16 L Hgb 12.0 L Hct 35.6 L RDW 15.6 H Plt Count 111 L Sodium 133.7 L ALT 18 L Albumin 3.3 L - EKG Interpretation by Me Additional EKG results interpreted by me: 04/16/18 23:03 EKGs reviewed and interpreted by me. EKG shows atrially paced rhythm with a rate of [address] segment elevation or depression. Occasional PVC. TN interval slightly prolonged. QRS duration QT intervals are within normal range. Discharge - Discharge Clinical Impression: Nausea Diarrhea Qualifiers: Diarrhea type: unspecified type Qualified Code(s): R19.7 - Diarrhea, unspecified Condition: Good Disposition: HOME, SELF-CARE Additional Instructions: I suspect the Mr. Rosario's diarrhea could be related to a bacteria called C. difficile. This is a bacteria that will proliferate in the bowel after being on antibiotics for another reason. He was recent on the antibiotics for pneumonia and is what I have the suspicion. He did not have any bowel movements here and therefore were unable to test the stool for this however will go ahead and place him on anabolic and will be appropriate for this infection. I have also prescribed a medicine called Zofran to help with the nausea. You should return to the ER immediately if Mr. Rosario starts having bloody bowel movements, recurrent vomiting, fevers, or worsening pain. Please follow-up closely with your doctor on Thursday or Thursday for reevaluation. Please talk to your doctor about whether or not increasing your home health coverage is a possibility or continue discussed the option of placement in a assisted living facility. Return to ER at anytime if you have any further concerns. Prescriptions: Metronidazole [Flagyl 500 mg Tablet] 500 mg PO Q6H #28 tablet Ondansetron [Zofran Odt 4 mg Tablet] 1 tab PO Q4H PRN #15 tab.rapdis PRN Reason: For Nausea/Vomiting
[2018-04-16] MEDS ORDERED: ONDANSETRON HCL INJ/PF 4 MG/2 ML SDV IV ONE (23:08)
[2018-04-16 23:30] LABS: ABSOLUTE BASOPHILS # (AUTO) 0.1 10^3/uL (0.0-0.2); ABSOLUTE EOSINOPHILS # (AUTO) 0.1 10^3/uL (0.0-0.6); ABSOLUTE LYMPHOCYTES (AUTO) 1.5 10^3/uL (0.5-4.7); ABSOLUTE MONOCYTES (AUTO) 0.8 10^3/uL (0.1-1.4); ABSOLUTE NEUT (AUTO) 4.5 10^3/uL (1.7-8.2); BASOPHILS % (AUTO) 0.8 % (0-2); EOSINOPHILS % (AUTO) 1.2 % (0-6); HEMATOCRIT 35.6 % (37.9-51.0); LYMPHOCYTES % (AUTO) 21.4 % (13-45); MEAN CORPUSCULAR HEMOGLOBIN 28.9 pg (27.0-33.4); MEAN CORPUSCULAR HGB CONC 33.8 g/dL (32.0-36.0); MEAN CORPUSCULAR VOLUME 86 fl (80-97); MONOCYTES % (AUTO) 11.7 % (3-13); PLATELET COUNT 111 10^3/uL (150-450); RED BLOOD COUNT 4.16 10^6/uL (4.35-5.55); RED CELL DISTRIBUTION WIDTH 15.6 % (11.5-14.0); SEGMENTED NEUTROPHILS % (AUTO) 64.9 % (42-78); TOTAL CELLS COUNTED % (AUTO) 100 %; WHITE BLOOD COUNT 6.9 10^3/uL (4.0-10.5)
[2018-04-16 23:54] LABS: ALANINE AMINOTRANSFERASE 18 U/L (21-72); ALBUMIN 3.3 g/dL (3.5-5.0); ALKALINE PHOSPHATASE 72 U/L (38-126); ANION GAP 12 (5-19); ASPARTATE AMINO TRANSFERASE 36 U/L (17-59); BILIRUBIN,DIRECT 0.2 mg/dL (0.0-0.4); BILIRUBIN,TOTAL 0.6 mg/dL (0.2-1.3); BLOOD UREA NITROGEN 7 mg/dL (7-20); CALCIUM 8.5 mg/dL (8.4-10.2); CARBON DIOXIDE 24 mmol/L (22-30); CHLORIDE 98 mmol/L (98-107); GLUCOSE 98 mg/dL (75-110); LIPASE 141.6 U/L (23-300); POTASSIUM 4.7 mmol/L (3.6-5.0); SODIUM 133.7 mmol/L (137-145); TOTAL PROTEIN 6.3 g/dL (6.3-8.2)
--- NOTE | 2018-04-16 23:57 | RADIOLOGY REPORT (SQ) ---
XR CHEST 1 VIEW HISTORY: Chest pain. COMPARISON: 03/24/2018 FINDINGS: Stable right chest wall pacemaker and left IJ line. Cardiomediastinal silhouette is unremarkable. Query left lung base atelectasis/opacity. No pleural effusion or pneumothorax is identified. No acute osseous findings. IMPRESSION: Query left lung base atelectasis/opacity.
[2018-04-17] MEDS ORDERED: METRONIDAZOLE 500 MG TABLET PO ONE (01:49)
[2018-04-17] MEDS ORDERED: ONDANSETRON ODT 4 MG TAB (6 TAB/ER DISP) PO PRN (03:10)
[2018-04-17 03:27] VITALS: BP 156/68
--- NOTE | 2018-04-17 08:03 | EKG REPORT ---
SEVERITY:- ABNORMAL ECG - ATRIAL-PACED RHYTHM : Confirmed by: Alee Eason MD 17-Apr-2018 08:02:48
== END 2018-04-17 03:44 | disposition home or self-care (01) ==
LOC: ER 22:41
DX: R19.7 Diarrhea, unspecified (principal); R11.0 Nausea; R07.9 Chest pain, unspecified; R10.9 Unspecified abdominal pain; R05 Cough; Z87.891 Personal history of nicotine dependence; I25.10 Atherosclerotic heart disease of native coronary artery without angina pectoris; I10 Essential (primary) hypertension; J44.9 Chronic obstructive pulmonary disease, unspecified; Z79.4 Long term (current) use of insulin
CPT/HCPCS: 93005; 36591; 99285; 96374; 36415; 83690; 85025; 80053; 84484; 71045; 93010; J2405; A9270 ×2

== ENCOUNTER 2018-06-15 15:39 | Day surgery (SDC) | payer MEDICARE, OTHER ==
[2018-06-15] MEDS ORDERED: DIPHENHYDRAMINE HCL 50 MG/ML VIAL ONE (17:03)
[2018-06-15] MEDS ORDERED: FENTANYL CITRATE INJ/PF 100 MCG/2 ML AMPUL ONE (17:03)
[2018-06-15] MEDS ORDERED: ONDANSETRON HCL INJ/PF 4 MG/2 ML SDV ONE (17:03)
[2018-06-15] MEDS ORDERED: EPINEPHRINE INJ 1 MG/10 ML DISP.SYRIN ONE (17:04)
[2018-06-15] MEDS ORDERED: GLUCAGON,HUMAN RECOMB 1 MG INJ ONE (17:04)
[2018-06-15] MEDS ORDERED: FLUMAZENIL INJ 0.5 MG/5 ML VIAL ONE (17:04)
[2018-06-15] MEDS ORDERED: NALOXONE HCL INJ/PF 0.4 MG/1 ML SDV ONE (17:04)
[2018-06-15] MEDS: MIDAZOLAM 2 MG/2 ML INJ ONE ×2 (17:30→17:33)
--- NOTE | 2018-06-15 18:10 | Operative Report ---
Operative Report DATE OF SURGERY: 06/15/18 Operative Report: Pre-op diagnosis: Abdominal pain, nausea, and change in bowel habit Post-op diagnosis: 1. Antral gastritis 2. Rectal polyp 3. Internal hemorrhoids Surgery: Upper endoscopy with biopsy and Colonoscopy with biopsy Medications: Versed 4mg, Fentanyl 100mcg IV push Tissue removed: Antral and gastric body biopsy, sigmoid polyp Procedure: After informed consent obtained from patient, patient's pharynx was sprayed with Hurricane and conscious sedation was achieved. The upper endoscope was then inserted into the esophagus under direct vision and advanced into the stomach and further into the duodenum. Detailed examination of the duodenum, stomach and the esophagus was then performed. A digital rectal examination was performed and this was unremarkable. The colonoscope was inserted into the rectum and advanced to the cecum. The appendiceal orifice and the terminal ileum were both identified. The mucosa was examined into details as the colonoscope was slowly pulled out of the patient. The endoscope was retroflexed in the rectum. Patient tolerated the procedure well. Findings Esophagus: Normal Stomach: Mild erythema in the gastric antrum Duodenum: Normal Cecum: Normal Ascending colon: Melanosis coli Transverse colon: Melanosis coli Descending colon: Melanosis coli Sigmoid colon: Melanosis coli. 2 mm polyp removed with biopsy forceps Rectum: Normal except for internal hemorrhoids Plan: Await pathology. Continue omeprazole OPERATION: .
[2018-06-15 19:28] VITALS: BP 133/56
== END 2018-06-15 19:30 | disposition home or self-care (01) ==
LOC: END 15:39
PROVIDERS: ATTEND Internal Medicine Gastroenterology
DX: K62.89 Other specified diseases of anus and rectum (principal); K63.89 Other specified diseases of intestine; K29.70 Gastritis, unspecified, without bleeding; K64.8 Other hemorrhoids; D12.5 Benign neoplasm of sigmoid colon; K21.9 Gastro-esophageal reflux disease without esophagitis; E11.9 Type 2 diabetes mellitus without complications; E78.00 Pure hypercholesterolemia, unspecified; I10 Essential (primary) hypertension; I73.9 Peripheral vascular disease, unspecified; I25.2 Old myocardial infarction; Z86.73 Personal history of transient ischemic attack (TIA), and cerebral infarction without residual deficits; Z79.01 Long term (current) use of anticoagulants; Z79.899 Other long term (current) drug therapy; Z79.84 Long term (current) use of oral hypoglycemic drugs; Z79.891 Long term (current) use of opiate analgesic; Z79.82 Long term (current) use of aspirin; Z86.718 Personal history of other venous thrombosis and embolism; Z86.711 Personal history of pulmonary embolism; Z95.0 Presence of cardiac pacemaker; Z79.1 Long term (current) use of non-steroidal anti-inflammatories (NSAID); Z88.5 Allergy status to narcotic agent; Z91.040 Latex allergy status
CPT/HCPCS: 43239; 45380; 82962; 88342 ×2; 88305 ×2; J2250; J3010; J0171; J1200; J1610; J2310; J2405; J3490